=== PATIENT | male | born 1935 | race Caucasian/White ===

== ENCOUNTER 2016-06-21 15:31 | Emergency (ER) | payer OTHER, MEDICARE ==
[~2016-06-21] VITALS: Ht 182.9 cm; Wt 83.9 kg
[~2016-06-21 15:31] MED LIST: ASPIRIN CHILDRE81 MG PO; ATORVASTATIN CA10 M1 PO; BISACODYL10 MG PR; CEPHALEXIN250 M2 PO; CIPRO 250MG250 MG PO; CIPRO 500MG TA500 MG PO; CIPRO250 M1 PO; CIPROFLOXACIN250 M2 PO; COUMADIN 5 MG TA5 MG PO; ENDOCET 325 MG-1 TA1 PO; FINASTERIDE5 M1 PO; FINASTERIDE5 MG PO; FLEXERIL 5MG TAB5 MG PO; LORAZEPAM0.5 M1 PO; METOPROLOL SUCC25 M1 PO; METOPROLOL SUCC25 MG PO; PERCOCET 325 MG1 TA2 PO; RENVELA800 MG PO; SENOKOT NATURA8.6 MG PO; SENOKOT8.6 M1 PO; SODIUM BICARBO650 MG PO; TRAMADOL HCL50 M1 PO; VENTOLIN HFA18 GM INH
--- NOTE | 2016-06-21 15:48 | ED GI/GU/ABDOMINAL COMPLAINT ---
History of Present Illness General Chief Complaint: Male Genitourinary Problems Stated Complaint: BLEEDING FROM CATH Source: patient, family, old records Exam Limitations: no limitations Vital Signs & Intake/Output Vital Signs & Intake/Output Vital Signs Date Time Temp Pulse Resp B/P Pulse O2 O2 Flow FiO2 Ox Delivery Rate 06/21 1718 97.8 83 18 176/82 97 Room Air ED Intake and Output 06/22 0000 06/21 1200 Intake Total Output Total Balance Patient 185 lb Weight Allergies Coded Allergies: cephalexin (Severe, DIARRHEA 10/06/15) midazolam (From VERSED) (Mild, BECAME ANGRY AND UPSET 06/21/16) Anesthetics - Amide Type (DISORIENTED, REGRESSION IN TIME, LOSS OF MEMORY ) Anesthetics - Chyna Type- Parabens (DISORIENTED, REGRESSION OF TIME, LOSS OF MEMORY 06/21/16) Benzodiazepines (CONFUSION 05/10/15) adhesive tape (BLISTERS - PAPER TAPE ONLY 06/21/16) cortisone (PAIN FROM INJECTION FOR A LONG TIME 06/21/16) diazepam (From VALIUM) (BECAME ANGRY AND UPSET 06/21/16) sevelamer (From RENVELA) (URINARY RETENTION, CONSTIPATION, LEG SWELLING 01/29/16 ) Reconcile Medications Albuterol Sulfate (Ventolin Hfa) 18 GM HFA.AER.AD 2 PUF INH Q4-6 PRN PRN COPD (Reported) Amoxicillin 500 MG CAPSULE 1 CAP PO TID ANTIBIOTIC (Reported) Atorvastatin Calcium 10 MG TABLET 1 TAB PO EOD CHOLESTEROL (Reported) Finasteride 5 MG TABLET 1 TAB PO DAILY PROSTATE (Reported) Lorazepam 0.5 MG TABLET 1 TAB PO DAILY NEEDED PRN BLADDER SPASMS (Reported ) Metoprolol Succinate 25 MG TAB 0.5 TAB PO BID HEART (Reported) Tramadol HCl 50 MG TABLET 1 TAB PO Q6P PRN PAIN (Reported) Triage Note: PT STATES THAT HE HAS INDWELLING CATHETER AND THAT AROUND 1500 HE FELT THE BALLOON POP, PRADO IS STILL IN PLACE AND HE NOTED BLOOD IN BAG AFTER IT HAPPENED. PT STATES THAT HE HAD THE SAME THING HAPPEN IN JANUARY Triage Nurses Notes Reviewed? yes HPI: Patient is an 80-year-old male presents complaining of slashed Prado catheter. Patient reports that approximately 1-2 hours ago he felt a spasm in his bladder then started having hematuria. The Prado catheter then became dislodged. Patient reports this is happened to him previously where the balloon has "popped ". Mild suprapubic pain currently. Patient is currently on antibiotics ( amoxicillin) for urinary tract infection. Patient's urologist is Dr. Saldana. Patient has had an indwelling Prado catheter for approximately 2-3 years. Denies fevers, chills, vomiting (EMILIE BRITO) Past History Travel History Traveled to [place] past 21 day No Medical History Any Pertinent Medical History? see below for history Neurological: NONE EENT: NONE Cardiovascular: hypertension, hyperlipidemia, OPEN HEART SX Respiratory: NONE Gastrointestinal: NONE Hepatic: hepatitis B Renal: benign prost hyperplasia, CKD INDWELLING PRADO UTI Musculoskeletal: R ORIF Psychiatric: NONE Endocrine: BPH WITH TURP Blood Disorders: anemia, THALASEMIA Cancer(s): bladder cancer Other Medical Hx: BPH History of MRSA: No History of VRE: No History of CDIFF: No Surgical History Surgical History: appendectomy, cholecystectomy, OPEN HEART Psychosocial History Who do you live with Spouse Services at Home None What is your primary language Rwandan Tobacco Use: Never used ETOH Use: denies use Illicit Drug Use: denies illicit drug use Family History Family History, If Any: FATHER FH: stroke, Onset: Unknown. MOTHER FH: cancer Hx Contributory? No (EMILIE BIRTO) Review of Systems Review of Systems Constitutional: Denies: chills, fever. Respiratory: Denies: cough, short of breath. Cardiovascular: Denies: chest pain. GI: Denies: nausea, vomiting. Genitourinary: Reports: see HPI. Musculoskeletal: Denies: back pain. Neurological/Psychological: Reports: no symptoms. Hematologic/Endocrine: Reports: see HPI, bleeding (hematuria). Immunologic/Allergic: Reports: no symptoms. (EMILIE BRITO) Physical Exam Physical Exam General Appearance: well developed/nourished, alert, awake Head: atraumatic, normal appearance Eyes: Bilateral: normal appearance. Ears, Nose, Throat, Mouth: hearing grossly normal, moist mucous membrane Neck: normal inspection, supple, full range of motion Respiratory: no respiratory distress Cardiovascular: regular rate/rhythm Gastrointestinal: normal bowel sounds, soft, non-tender Back: normal inspection, normal range of motion Extremities: normal range of motion Neurologic/Psych: no motor/sensory deficits, awake, alert, oriented x 3, normal gait, normal mood/affect Skin: intact, normal color, warm/dry Core Measures ACS in differential dx? No Severe Sepsis Present: No Septic Shock Present: No (EMILIE BRITO) Progress Differential Diagnosis: ureterolithiasis, urinary retention, UTI/pyelo, prado catheter dysfunction Plan of Care: Microbiology 06/21 1716 URINE ROUT: Urine Culture - RES New Prado catheter placed by nursing staff. Patient appears stable for discharge and outpatient follow-up. Discussed with Dr. Shields. (EMILIE BRITO) Initial ED EKG: none (EMILIE BRITO) Departure Departure Disposition: HOME OR SELF CARE Condition: Stable Clinical Impression Primary Impression: Dislodged Prado catheter Qualifiers: Encounter type: initial encounter Qualified Code: T83.021A - Displacement of indwelling urethral catheter, initial encounter Secondary Impressions: Elevated blood pressure reading Referrals: DONNY CHOI,CLEM SANTOS MD,ELIZABETH (PCP/Family) Additional Instructions: Follow up with Dr. Saldana. Continue the antibiotics as previously directed. Return to the ER if catheter is not draining, fevers, increasing pain or worsening of symptoms. Departure Forms: Customer Survey General Discharge Information (EMILIE BRITO) PA/BROACHER Co-Sign Statement Statement: ED Attending supervision documentation- [X] I saw and evaluated the patient. I have also reviewed all the pertinent lab results and diagnostic results. I agree with the findings and the plan of care as documented in the PA's/BROACHER's documentation. [X] I have reviewed the ED Record and agree with the PA's/BROACHER's documentation. [] Additions or exceptions (if any) to the PAs/BROACHER's note and plan are summarized below: [] (RUFINO CHOI,CATIE)
[2016-06-21] MEDS ORDERED: AMOXICILLIN500 M2 PO (16:25)
[2016-06-21 17:18] VITALS: BP 176/82
== END 2016-06-21 17:19 ==
LOC: ERH 15:31
DX: T83.021A Displacement of indwelling urethral catheter, initial encounter (principal); T83.83XA Hemorrhage due to genitourinary prosthetic devices, implants and grafts, initial encounter
CPT/HCPCS: 87086

== ENCOUNTER 2016-08-02 02:19 | Emergency (ER) | payer OTHER, MEDICARE ==
[~2016-08-02] VITALS: Ht 182.9 cm; Wt 83.9 kg
[~2016-08-02 02:19] MED LIST changes: +AMOXICILLIN500 M2 PO
--- NOTE | 2016-08-02 02:30 | ED GI/GU/ABDOMINAL COMPLAINT ---
History of Present Illness General Chief Complaint: Male Genitourinary Problems Stated Complaint: "PER PT BLOOD IN URINE" Source: patient Exam Limitations: no limitations Vital Signs & Intake/Output Vital Signs & Intake/Output Vital Signs Date Time Temp Pulse Resp B/P B/P Pulse O2 O2 Flow FiO2 Mean Ox Delivery Rate 08/02 0246 100 Room Air 08/02 0237 96.3 92 18 162/79 100 Room Air Allergies Coded Allergies: cephalexin (Severe, DIARRHEA 10/06/15) midazolam (From VERSED) (Mild, BECAME ANGRY AND UPSET 06/21/16) Anesthetics - Amide Type (DISORIENTED, REGRESSION IN TIME, LOSS OF MEMORY ) Anesthetics - Chyna Type- Parabens (DISORIENTED, REGRESSION OF TIME, LOSS OF MEMORY 06/21/16) Benzodiazepines (CONFUSION 05/10/15) adhesive tape (BLISTERS - PAPER TAPE ONLY 06/21/16) cortisone (PAIN FROM INJECTION FOR A LONG TIME 06/21/16) diazepam (From VALIUM) (BECAME ANGRY AND UPSET 06/21/16) sevelamer (From RENVELA) (URINARY RETENTION, CONSTIPATION, LEG SWELLING 01/29/16 ) Reconcile Medications Albuterol Sulfate (Ventolin Hfa) 18 GM HFA.AER.AD 2 PUF INH Q4-6 PRN PRN COPD (Reported) Amoxicillin 500 MG CAPSULE 1 CAP PO TID ANTIBIOTIC (Reported) Atorvastatin Calcium 10 MG TABLET 1 TAB PO EOD CHOLESTEROL (Reported) Finasteride 5 MG TABLET 1 TAB PO DAILY PROSTATE (Reported) Lorazepam 0.5 MG TABLET 1 TAB PO DAILY NEEDED PRN BLADDER SPASMS (Reported ) Metoprolol Succinate 25 MG TAB 0.5 TAB PO BID HEART (Reported) Oxycodone HCl/Acetaminophen (Percocet 5-325 MG Tablet) 5 MG-325 MG TABLET 1 TAB PO 4XDP PRN PAIN TEN...[id number] Tramadol HCl 50 MG TABLET 1 TAB PO Q6P PRN PAIN (Reported) Triage Nurses Notes Reviewed? yes Onset: Abrupt Duration: hour(s): Timing: single episode today Quality/Severity: moderate Location: left flank Radiation: no radiation Activities at Onset: none Prior Abdominal Problems: similar symptoms Modifying Factors: Worsens With: urinating. Associated Symptoms: hematuria HPI: 80 yo gentleman h/o kidney stones 20 years ago, h/o indwelling prado catheter, presents with left flank pain which began several hours ago, similar to prior episode of kidney stones. He notes an episode of hematuria. He is otherwise well, without nausea, vomiting, diarrhea, chills, abdominal pain. Past History Travel History Traveled to [place] past 21 day No Medical History Any Pertinent Medical History? see below for history Neurological: NONE EENT: NONE Cardiovascular: hypertension, hyperlipidemia, OPEN HEART SX Respiratory: NONE Gastrointestinal: NONE Hepatic: hepatitis B Renal: benign prost hyperplasia, CKD INDWELLING PRADO UTI Musculoskeletal: R ORIF Psychiatric: NONE Endocrine: BPH WITH TURP Blood Disorders: anemia, THALASEMIA Cancer(s): bladder cancer Other Medical Hx: BPH History of MRSA: No History of VRE: No History of CDIFF: No Surgical History Surgical History: appendectomy, cholecystectomy, OPEN HEART Psychosocial History Who do you live with Spouse Services at Home None What is your primary language Liberian Tobacco Use: Refused to answer Family History Family History, If Any: FATHER FH: stroke, Onset: Unknown. MOTHER FH: cancer Hx Contributory? No Review of Systems Review of Systems Constitutional: Reports: no symptoms. EENTM: Reports: no symptoms. Respiratory: Reports: no symptoms. Cardiovascular: Reports: no symptoms. GI: Reports: no symptoms. Genitourinary: Reports: no symptoms. Musculoskeletal: Reports: no symptoms. Skin: Reports: no symptoms. Neurological/Psychological: Reports: no symptoms. Hematologic/Endocrine: Reports: no symptoms. Immunologic/Allergic: Reports: no symptoms. All Other Systems: Reviewed and Negative Physical Exam Physical Exam General Appearance: well developed/nourished, mild distress Head: atraumatic, normal appearance Eyes: Bilateral: normal appearance. Ears, Nose, Throat, Mouth: hearing grossly normal, moist mucous membrane Neck: normal inspection, supple, full range of motion Respiratory: normal breath sounds, chest non-tender, no respiratory distress Cardiovascular: regular rate/rhythm Gastrointestinal: normal bowel sounds, soft, non-tender Male Genitals: normal genitalia Back: normal inspection, left sided back paraspinal tenderness. Extremities: normal range of motion Neurologic/Psych: no motor/sensory deficits, awake, alert, oriented x 3 Skin: intact, normal color, warm/dry Core Measures ACS in differential dx? No Severe Sepsis Present: No Septic Shock Present: No Progress Differential Diagnosis: UTI/pyelo, kidney stone vs other. Plan of Care: Orders Procedure Date/time Status URINALYSIS 08/02 237 Complete LIPASE 08/02 237 Complete HEPATIC FUNCTION PANEL 08/02 237 Complete CBC WITHOUT DIFFERENTIAL 08/02 237 Complete BASIC METABOLIC PANEL 08/02 237 Complete AMYLASE 08/02 237 Complete Laboratory Tests 08/02/16 0355: Urinalysis LIGHT H, Urine Color BLDY H, Urine Clarity TURBD H, Urine pH 7.0, Ur Specific [place] 1.020, Urine Protein >=300 H, Urine Ketones NEG, Urine Nitrite NEG, Urine Bilirubin NEG, Urine Urobilinogen 0.2, Ur Leukocyte Esterase SMALL H, Ur Microscopic SEDIMENT EXAMINED, Urine RBC 50-75 H, Urine WBC 10-15 H, Urine Bacteria MOD H, Urine Hemoglobin LARGE H, Urine Glucose NEG 08/02/16 0243: Anion Gap 15, Estimated GFR 16 L, BUN/Creatinine Ratio 12.5, Glucose 94, Calcium 9.1, Total Bilirubin 0.5, Direct Bilirubin 0.3, AST 22, ALT 31, Alkaline Phosphatase 79, Total Protein 7.3, Albumin 4.3, Amylase 125 H, Lipase 437 H, CBC w Diff NO MAN DIFF REQ, RBC 5.40, MCV 63.7 L, MCH 19.6 L, RDW 16.1 H, MPV 9.0, Gran % 71.3, Lymphocytes % 17.0 L, Monocytes % 8.4, Eosinophils % 2.7, Basophils % 0.6, Absolute Granulocytes 8.1 H, Absolute Lymphocytes 1.9, Absolute Monocytes 1.0 H, Absolute Eosinophils 0.3, Absolute Basophils 0.1, PUBS MCHC 30.8 L Diagnostic Imaging: Viewed by Me: CT Scan. Discussed w/RAD: CT Scan. Radiology Impression: abd/pelvic ct... bilateral hydronephrosis... no visualized stones. Initial ED EKG: none Comments: PATIENT: KEI DUNBAR PRESENT AGE: 80 PATIENT ACCOUNT NO: [id number] : 35 LOCATION: [facility] ORDERING PHYSICIAN: BRAD SIMMS MD SERVICE DATE: 08/02/16 EXAM TYPE: CAT - CT ABD & PELVIS W/O IV CONTRAS EXAMINATION: CT ABDOMEN AND PELVIS WITHOUT CONTRAST CLINICAL INFORMATION: Left flank pain. Question kidney stone. COMPARISON: Ultrasound 03/12/2015. CT 02/17/2007 TECHNIQUE: Multidetector volumetric imaging was performed from the superior aspect of the liver through the pubic symphysis. Sagittal and coronal reformatted images were obtained on the technologist's workstation. DLP: 517 mGy-cm FINDINGS: LUNG BASES: The lung bases are clear. Calcifications are seen along the right aspect of the pericardium. LIVER, GALLBLADDER, AND BILIARY TREE: The liver is normal in size, shape, and attenuation. No focal hepatic lesion or biliary ductal dilatation is present. The gallbladder is not seen. PANCREAS: Unremarkable. SPLEEN: Unremarkable. ADRENAL GLANDS: Unremarkable. KIDNEYS AND URETERS: There is moderate left hydroureteronephrosis. There is no obstructing calculus present. The ureter is dilated along its entire course. There is mild right hydronephrosis with moderate dilatation of the right ureter along nearly its entire course. There is left greater than right prominent perinephric stranding. Bilateral cortical thinning, right greater than left. A majority of the right renal cortex is replaced by cysts. This is a significant change from the CT from 2006. Left renal cysts are also noted, with a dominant exophytic lower pole cyst which has significantly increased in size since 2006, measuring 9.7 cm. BLADDER: Decompressed with a Prado catheter in place. GASTROINTESTINAL TRACT: The stomach and small bowel are unremarkable. No dilated loops of bowel or evidence of obstruction. There is extensive diverticulosis of the sigmoid colon. No evidence of diverticulitis. No inflammatory changes. No free air or free fluid. ABDOMINAL WALL: No significant hernia is appreciated. LYMPH NODES: Normal. VASCULAR: Mild atherosclerotic calcifications. PELVIC VISCERA: Prominent enlargement of the prostate, measuring 6.2 cm transverse. OSSEOUS STRUCTURES: Cannulated screws in the right femoral neck. No acute fracture. Degenerative changes of the hips and spine. IMPRESSION: Moderate left hydroureteronephrosis with prominent perinephric stranding. Mild right hydronephrosis with moderate dilatation of the right ureter. There are no obstructing calculi. The prostate is enlarged. This could be associated with an outlet obstruction. Bilateral renal cortical thinning, right worse than left. Bilateral renal cysts are increased. Extensive sigmoid colon diverticulosis. DICTATED BY: JELLY CHOI,JANUARY DATE/TIME DICTATED:08/02/16 0327 [employer] INSURANCE SALES AGENT:JUDY DATE/TIME TRANSCRIBED:08/02/16326 CONFIDENTIAL, DO NOT COPY WITHOUT APPROPRIATE AUTHORIZATION. <Electronically signed in Other Vendor System> SIGNED BY: JELLY CHOI,JANUARY 08/02 Departure Departure Disposition: HOME OR SELF CARE Condition: Stable Clinical Impression Primary Impression: Flank pain Referrals: ELIZABETH SANTOS MD (PCP/Family) Departure Forms: Customer Survey General Discharge Information Prescriptions: Current Visit Scripts Oxycodone HCl/Acetaminophen (Percocet 5-325 MG Tablet) 1 TAB PO 4XDP PRN PAIN #10 TAB TEN...[id number] Comments 08/02/16, 4:47am... pt feeling better after toradol... doing well... ct scan negative for stones, but does show chronic changes... pt safe for discharge with close follow up advised. pt has follow up with urologist in 2 days.
[2016-08-02 02:50] LABS: ABSOLUTE BASOPHIL COUNT 0.1 /CUMM (0.0-0.2); ABSOLUTE EOSINOPHIL COUNT 0.3 /CUMM (0.0-0.7); ABSOLUTE GRANULOCYTE CT 8.1 /CUMM (1.4-6.5); ABSOLUTE LYMPH COUNT 1.9 /CUMM (1.2-3.4); BASOPHIL % 0.6 % (0.0-2.0); EOSINOPHIL % 2.7 % (0-5); GRANULOCYTE % 71.3 % (42.2-75.2); HEMATOCRIT 34.4 % (42-52); MEAN CORPUSCULAR HGB 19.6 PG (27.0-31.0); MEAN CORPUSCULAR HGB CONC 30.8 G/DL (33.0-37.0); MEAN CORPUSCULAR VOLUME 63.7 FL (80.0-94.0); PLATELET COUNT 210 /CUMM (130-400); RBC DISTRIBUTION WIDTH 16.1 % (11.5-14.5); WHITE BLOOD CELL COUNT 11.4 /CUMM (4.8-10.8)
--- NOTE | 2016-08-02 03:36 | CT SCAN REPORT ---
EXAMINATION: CT ABDOMEN AND PELVIS WITHOUT CONTRAST CLINICAL INFORMATION: Left flank pain. Question kidney stone. COMPARISON: Ultrasound 03/12/2015. CT 02/17/2007 TECHNIQUE: Multidetector volumetric imaging was performed from the superior aspect of the liver through the pubic symphysis. Sagittal and coronal reformatted images were obtained on the technologist's workstation. DLP: 517 mGy-cm FINDINGS: LUNG BASES: The lung bases are clear. Calcifications are seen along the right aspect of the pericardium. LIVER, GALLBLADDER, AND BILIARY TREE: The liver is normal in size, shape, and attenuation. No focal hepatic lesion or biliary ductal dilatation is present. The gallbladder is not seen. PANCREAS: Unremarkable. SPLEEN: Unremarkable. ADRENAL GLANDS: Unremarkable. KIDNEYS AND URETERS: There is moderate left hydroureteronephrosis. There is no obstructing calculus present. The ureter is dilated along its entire course. There is mild right hydronephrosis with moderate dilatation of the right ureter along nearly its entire course. There is left greater than right prominent perinephric stranding. Bilateral cortical thinning, right greater than left. A majority of the right renal cortex is replaced by cysts. This is a significant change from the CT from 2006. Left renal cysts are also noted, with a dominant exophytic lower pole cyst which has significantly increased in size since 2006, measuring 9.7 cm. BLADDER: Decompressed with a Castro catheter in place. GASTROINTESTINAL TRACT: The stomach and small bowel are unremarkable. No dilated loops of bowel or evidence of obstruction. There is extensive diverticulosis of the sigmoid colon. No evidence of diverticulitis. No inflammatory changes. No free air or free fluid. ABDOMINAL WALL: No significant hernia is appreciated. LYMPH NODES: Normal. VASCULAR: Mild atherosclerotic calcifications. PELVIC VISCERA: Prominent enlargement of the prostate, measuring 6.2 cm transverse. OSSEOUS STRUCTURES: Cannulated screws in the right femoral neck. No acute fracture. Degenerative changes of the hips and spine. IMPRESSION: Moderate left hydroureteronephrosis with prominent perinephric stranding. Mild right hydronephrosis with moderate dilatation of the right ureter. There are no obstructing calculi. The prostate is enlarged. This could be associated with an outlet obstruction. Bilateral renal cortical thinning, right worse than left. Bilateral renal cysts are increased. Extensive sigmoid colon diverticulosis.
[2016-08-02] MEDS ORDERED: PERCOCET 5-3251 EACH PO (04:39)
[2016-08-02 04:59] VITALS: BP 174/81
== END 2016-08-02 05:00 ==
LOC: ERH 02:19
PROVIDERS: Pediatrics
DX: R10.9 Unspecified abdominal pain (principal)
CPT/HCPCS: 74176; 81001; 96361; 96374; J1885

== ENCOUNTER 2017-11-14 07:42 | Inpatient (IN) | payer OTHER, MEDICARE ==
[~2017-11-14] VITALS: Ht 182 cm; Wt 79.6 kg
[~2017-11-14 07:42] MED LIST changes: +AMOXICILLIN500 M3 PO; +CIPRO500 M1 PO; +LOMOTIL 2.5-0.1 EACH PO; +PERCOCET 5-3251 EACH PO; +TYLENOL325 M1 PO
--- NOTE | 2017-11-14 07:46 | ED GENERAL ADULT ---
History of Present Illness General Chief Complaint: Syncope and Near-Syncope Stated Complaint: S/P RAPID RESPONSE, +SYNCOPE Source: patient, NURSING Exam Limitations: poor historian, physical impairment Vital Signs & Intake/Output Vital Signs & Intake/Output Vital Signs Date Time Temp Pulse Resp B/P B/P Pulse O2 O2 Flow FiO2 Mean Ox Delivery Rate 11/14 910 53 18 153/76 95 Nasal 2.0L Cannula 11/14 0842 53 18 167/76 98 Nasal 2.0L Cannula 11/14 0808 98.6 58 18 193/76 98 Nasal 2.0L Cannula 11/14 0757 98 Room Air Allergies Coded Allergies: cephalexin (Severe, DIARRHEA 02/05/17) midazolam (From VERSED) (Mild, BECAME ANGRY AND UPSET 02/05/17) Anesthetics - Amide Type (DISORIENTED, REGRESSION IN TIME, LOSS OF MEMORY ) Anesthetics - Chyna Type- Parabens (DISORIENTED, REGRESSION OF TIME, LOSS OF MEMORY 02/05/17) Benzodiazepines (CONFUSION 02/05/17) adhesive tape (BLISTERS - PAPER TAPE ONLY 02/05/17) cortisone (PAIN FROM INJECTION FOR A LONG TIME 02/05/17) diazepam (From VALIUM) (BECAME ANGRY AND UPSET 02/05/17) sevelamer (From RENVELA) (URINARY RETENTION, CONSTIPATION, LEG SWELLING 02/05/17 ) Reconcile Medications Atorvastatin Calcium 10 MG TABLET 1 TAB PO DAILY CHOLESTEROL (Reported) Finasteride 5 MG TABLET 1 TAB PO DAILY PROSTATE (Reported) Metoprolol Succinate 25 MG TAB 1 TAB PO QPM HEART/BP (Reported) Triage Nurses Notes Reviewed? yes Onset: Abrupt Duration: minute(s): Timing: recent history HPI: 11/14/17 8:33 AM 81-year-old male presents to the emergency department via rapid response for syncope. The patient was scheduled for a left nephrostomy tube change. He did eat some toast this morning. He does admit to difficulty breathing and occasional cough. No fever. He does admit to weakness. No chest pain currently but is had some chest tightness recently. He is DNR/DNI. Past History Travel History Traveled to [place] past 21 day No Medical History Any Pertinent Medical History? see below for history Neurological: PARTIAL RT HEARING LOSS EENT: NONE Cardiovascular: hypertension, hyperlipidemia, OPEN HEART SX Respiratory: NONE Gastrointestinal: NONE Hepatic: hepatitis B Renal: benign prost hyperplasia, CKD INDWELLING PRADO UTI NEPHROSTOMY TUBE Musculoskeletal: R ORIF Psychiatric: NONE Endocrine: BPH WITH TURP Blood Disorders: anemia, THALASEMIA Cancer(s): BLADDER CA (2009) Other Medical Hx: BPH History of MRSA: No History of VRE: No History of CDIFF: No Surgical History Surgical History: appendectomy, cholecystectomy, OPEN HEART BACK SURGERY Psychosocial History Who do you live with Spouse Services at Home None What is your primary language Armenian Family History Family History, If Any: FATHER FH: stroke, Onset: Unknown. MOTHER FH: cancer SISTER FH: cancer SISTER FH: cancer Hx Contributory? No Review of Systems Review of Systems Constitutional: Denies: fever. EENTM: Denies: visual changes. Respiratory: Reports: cough, short of breath. Cardiovascular: Reports: see HPI. GI: Denies: abdominal pain. Genitourinary: Reports: see HPI. Musculoskeletal: Reports: no symptoms. Skin: Reports: no symptoms. Neurological/Psychological: Denies: headache. Hematologic/Endocrine: Reports: no symptoms. Immunologic/Allergic: Reports: no symptoms. Physical Exam Physical Exam General Appearance: alert, awake, mild distress Head: atraumatic Eyes: Bilateral: normal appearance, PERRL, EOMI. Ears, Nose, Throat: normal pharynx, normal ENT inspection Neck: normal inspection, supple, full range of motion Respiratory: normal breath sounds, chest non-tender, no respiratory distress Cardiovascular: regular rate/rhythm Peripheral Pulses: 4+ radial (R), 4+ radial (L) Gastrointestinal: soft, non-tender (LEFT NEPHROSTOMY TUBE) Back: normal range of motion Extremities: pedal edema Neurologic/Psych: no motor/sensory deficits, awake, alert, oriented x 3 Skin: intact, normal color, warm/dry Core Measures ACS in differential dx? Yes CVA/TIA Diagnosis: No Sepsis Present: No Sepsis Focused Exam Completed? No Progress Differential Diagnoses I considered the following diagnoses in my evaluation of the patient: [Acute coronary syndrome, anemia, electrolyte derangement, CVA, hypoglycemia, dehydration] Plan of Care: Orders Procedure Date/time Status Heart Healthy Diet 11/14 L Active Patient Data 11/14 105 Active VITAL CAPACITY MONITORING 11/[address] in observation 11/14 1055 Active ED Holding Orders 11/14 1055 Active Code Status 11/14 1055 Active LUNG SCAN (V/Q) 11/14 1026 Active XRY-PORTABLE CHEST XRAY 11/14 1023 Active Add-on Test (ER Only) 11/14 1009 Active CULTURE,URINE 11/15 835 Active URINALYSIS 11/14 822 Complete TROPONIN LEVEL 11/14 822 Complete LACTIC ACID 11/14 822 Complete D-DIMER 11/14 822 Complete COMPREHENSIVE METABOLIC PANEL 11/14 822 Complete CBC WITHOUT DIFFERENTIAL 11/14 822 Complete EKG 11/14 0746 Active Laboratory Tests 11/14/17 0836: Anion Gap 5, Estimated GFR 22 L, BUN/Creatinine Ratio 11.8, Glucose 82, Lactic Acid 1.4, Calcium 8.7, Total Bilirubin 0.4, AST 21, ALT 25, Alkaline Phosphatase 61, Troponin I 0.01, Total Protein 6.1 L, Albumin 3.4 L, Globulin 2.7, Albumin /Globulin Ratio 1.3, D-Dimer High Sensitivty 423 H, CBC w Diff NO MAN DIFF REQ, RBC 5.05, MCV 63.8 L, MCH 20.3 L, MCHC 31.8 L, RDW 16.0 H, MPV 9.1, Gran % 70.6, Lymphocytes % 17.3 L, Monocytes % 9.8 H, Eosinophils % 2.2, Basophils % 0.1, Absolute Granulocytes 5.2, Absolute Lymphocytes 1.3, Absolute Monocytes 0.7 H, Absolute Eosinophils 0.2, Absolute Basophils 0, Urinalysis LIGHT H, Urine Color YEL, Urine Clarity HAZY H, Urine pH 6.0, Ur Specific [place] 1.025, Urine Protein 100 H, Urine Ketones NEG, Urine Nitrite POS H, Urine Bilirubin NEG, Urine Urobilinogen 0.2, Ur Leukocyte Esterase LARGE H, Ur Microscopic SEDIMENT EXAMINED, Urine RBC 15-25 H, Urine WBC PACKD H, Ur Epithelial Cells RARE, Urine Bacteria MANY H, Urine Hemoglobin MOD H, Urine Glucose NEG Microbiology 11/15 835 URINE ROUT: Urine Culture - RECD 11/14 822 URINE ROUT: Urine Culture - CAN Cancelled: Cancelled via OE: ADDED ON Initial ED EKG: NSR, RBBB Prior EKG: unchanged Departure Departure Disposition: STILL A PATIENT Condition: Stable Clinical Impression Primary Impression: Syncope Referrals: Robert Amaya MD (PCP/Family) Departure Forms: Customer Survey General Discharge Information Observation Note Spoke With: Robert Amaya MD Physician Advisor Notified: LEDY BENNETT DO Place Patient In: Non-ED OBS Care Area Rationale for Observation: My rational for observation is as follows [the patient needs to be placed in observation for serial troponins, repeat EKG, cardiology consultation, VQ scan, neuro evaluations every 6 hours]. Critical Care Note Critical Care Note Critical Care Time: 30-74 min
[2017-11-14 08:57] LABS: ABSOLUTE BASOPHIL COUNT 0 /CUMM (0.0-0.2); ABSOLUTE EOSINOPHIL COUNT 0.2 /CUMM (0.0-0.7); ABSOLUTE GRANULOCYTE CT 5.2 /CUMM (1.4-6.5); ABSOLUTE LYMPH COUNT 1.3 /CUMM (1.2-3.4); ABSOLUTE MONOCYTE COUNT 0.7 /CUMM (0.10-0.60); BASOPHIL % 0.1 % (0.0-2.0); EOSINOPHIL % 2.2 % (0-5); GRANULOCYTE % 70.6 % (42.2-75.2); HEMATOCRIT 32.2 % (42-52); MEAN CORPUSCULAR HGB 20.3 PG (27.0-31.0); MEAN CORPUSCULAR HGB CONC 31.8 G/DL (33.0-37.0); MEAN PLATELET VOLUME 9.1 FL (7.4-10.4); PLATELET COUNT 194 /CUMM (130-400); RED BLOOD CELL CT 5.05 /CUMM (4.70-6.10); WHITE BLOOD CELL COUNT 7.3 /CUMM (4.8-10.8)
[2017-11-14 09:13] LABS: MEAN CORPUSCULAR VOLUME 63.8 FL (80.0-94.0)
--- NOTE | 2017-11-14 09:42 | CT SCAN REPORT ---
EXAMINATION: CT HEAD WITHOUT CONTRAST CLINICAL INFORMATION: Syncope. Confusion. COMPARISON: 06/28/2015 TECHNIQUE: Contiguous axial imaging was performed from the skull base to vertex without intravenous administration of contrast. DLP: 630 mGy-cm FINDINGS: Brain parenchyma: No acute findings compared to 06/28/2015. Godwin-white matter differentiation is well preserved. No evidence of a dense cerebral artery sign, acute major vascular territory infarction, hemorrhage, mass or midline shift. [id number] atrophy of cerebral and cerebellar hemispheres. Cerebrospinal fluid spaces: No hydrocephalus or extra-axial fluid collections. Cerebellum and brainstem: No acute abnormality. The 4th ventricle is midline in position. The cerebellopontine angles are normal. Calvarium and temporomandibular joints: Calvarium is intact. Mastoid air cells and middle ear cavities are well aerated. The TMJs are normal. Paranasal sinuses and orbits: Mild mucosal thickening of ethmoid air cells. No air-fluid levels within the visualized nasal sinuses. Lenses have been extracted from each globe. Other: No acute findings in the visualized extracranial soft tissues. Chronic degeneration at the the partially visualized atlantodental articulation. IMPRESSION: No acute intracranial pathology compared to 06/28/2015.
--- NOTE | 2017-11-14 11:06 | RADIOLOGY REPORT ---
EXAMINATION: XR PORTABLE CHEST CLINICAL INFORMATION: Syncope COMPARISON: None TECHNIQUE: Portable frontal view of the chest was obtained. FINDINGS: Elevated right hemidiaphragm. Cardiomediastinal silhouette is within normal limits. Streaky subsegmental atelectasis noted in the bases. Suggestion of pleural thickening or trace right effusion. No gross consolidation. IMPRESSION: Stable elevation of the right hemidiaphragm. Streaky subsegmental atelectasis. Trace effusion or pleural thickening right base.
--- NOTE | 2017-11-14 11:16 | Cons- Cardiology ---
General Information and HPI Consulting Request Date of Consult: 11/14/17 Requested By: Dr. Amaya Reason for Consult: Syncope History of Present Illness: The patient is an 81-year-old male with history of hypertension, hyperlipidemia, atrial septal defect repair and bladder cancer who is admitted after a syncopal episode. The patient was in the same day surgical suite to have his nephrostomy to electively change. Before the procedure was initiated he became lightheaded and had a syncopal episode. Rapid response was called, the patient was brought to the emergency department. He notes intermittent episodes of lightheadedness and dizziness over the past week. He has been under stress secondary to the recent passing of his . No chest pain. No shortness of breath. No diaphoresis. No orthopnea. No nausea or vomiting. Allergies/Medications Allergies: Coded Allergies: cephalexin (Severe, DIARRHEA 02/05/17) midazolam (From VERSED) (Mild, BECAME ANGRY AND UPSET 02/05/17) Anesthetics - Amide Type (DISORIENTED, REGRESSION IN TIME, LOSS OF MEMORY ) Anesthetics - Chyna Type- Parabens (DISORIENTED, REGRESSION OF TIME, LOSS OF MEMORY 02/05/17) Benzodiazepines (CONFUSION 02/05/17) adhesive tape (BLISTERS - PAPER TAPE ONLY 02/05/17) cortisone (PAIN FROM INJECTION FOR A LONG TIME 02/05/17) diazepam (From VALIUM) (BECAME ANGRY AND UPSET 02/05/17) sevelamer (From RENVELA) (URINARY RETENTION, CONSTIPATION, LEG SWELLING 02/05/17 ) Home Med List: Atorvastatin Calcium 10 MG TABLET 1 TAB PO DAILY CHOLESTEROL (Reported) Finasteride 5 MG TABLET 1 TAB PO DAILY PROSTATE (Reported) Metoprolol Succinate 25 MG TAB 1 TAB PO QPM HEART/BP (Reported) Current Medications: Current Medications Sig/Brian Start time Last Medication Dose Route Stop Time Status Admin Acetaminophen 1,000 MG Q6P PRN 11/14 1200 AC IV Atorvastatin Calcium 10 MG 1700 11/15 1700 AC PO Atropine Sulfate 1 MG ONCE PRN 11/14 1345 AC IV Atropine Sulfate 0 .STK-MED ONE 11/14 1328 DC .ROUTE Ceftriaxone Sodium 1,000 MG DAILY 11/14 1201 AC 11/14 IV 1536 Dextrose/Sodium 1,000 ML .[id number] 11/14 1200 AC 11/14 Chloride IV 1342 Heparin Sodium 5,000 UNIT Q8 11/14 1400 AC (Porcine) SC Sodium Chloride 1,000 ML BOLUS ONE 11/14 0830 DC 11/14 IV 11/14 1029 0830 Review of Systems Review of Systems: No rash. No tremor. No melena. All other systems are reviewed and are noted to be negative. Past History Travel History Traveled to [place] past 21 day No Medical History Neurological: PARTIAL RT HEARING LOSS EENT: NONE Cardiovascular: hypertension, hyperlipidemia, OPEN HEART SX Respiratory: NONE Gastrointestinal: NONE Hepatic: hepatitis B Renal: benign prost hyperplasia, CKD INDWELLING PRADO UTI NEPHROSTOMY TUBE Musculoskeletal: R ORIF Psychiatric: NONE Endocrine: BPH WITH TURP Blood Disorders: anemia, THALASEMIA Cancer(s): BLADDER CA (2008) Other Medical Hx: BPH Surgical History Surgical History: appendectomy, cholecystectomy, OPEN HEART BACK SURGERY Family History Relations & Conditions If Any: FATHER FH: stroke, Onset: Unknown. MOTHER FH: cancer SISTER FH: cancer SISTER FH: cancer Psychosocial History Services at Home: None Primary Language: Turkish Functional Ability Ambulation: cane Exam & Diagnostic Data Vital Signs and I&O Vital Signs Date Time Temp Pulse Resp B/P B/P Pulse O2 O2 Flow FiO2 Mean Ox Delivery Rate 11/14 910 53 18 153/76 95 Nasal 2.0L Cannula 11/14 0842 53 18 167/76 98 Nasal 2.0L Cannula 11/14 0808 98.6 58 18 193/76 98 Nasal 2.0L Cannula 11/14 0757 98 Room Air Intake & Output 11/14 1600 11/14 0800 11/14 0000 11/13 1600 11/13 0000 Intake Total Output Total Balance Patient 180 lb Weight Weight Reported by Patient Measurement Method Labs/Chava Results: Laboratory Tests 11/14 11/14 11/14 1350 1123 0836 Chemistry Sodium (137 - 145 mmol/L) 142 Potassium (3.5 - 5.1 mmol/L) 4.4 Chloride (98 - 107 mmol/L) 111 H Carbon Dioxide (22 - 30 mmol/L) 26 Anion Gap (5 - 16) 5 BUN (9 - 20 mg/dL) 33 H Creatinine (0.7 - 1.2 mg/dL) 2.8 H Estimated GFR (>60 ml/min) 22 L BUN/Creatinine Ratio (7 - 25 %) 11.8 Glucose (65 - 99 mg/dL) 82 Lactic Acid (0.7 - 2.1 mmol/L) Cancelled 1.4 Calcium (8.4 - 10.2 mg/dL) 8.7 Total Bilirubin (0.2 - 1.3 mg/dL) 0.4 AST (17 - 59 U/L) 21 ALT (21 - 72 U/L) 25 Alkaline Phosphatase (< 127 U/L) 61 Troponin I (<0.11 ng/ml) 0.02 0.01 Total Protein (6.3 - 8.2 g/dL) 6.1 L Albumin (3.5 - 5.0 g/dL) 3.4 L Globulin (1.9 - 4.2 gm/dL) 2.7 Albumin/Globulin Ratio (1.1 - 2.2 %) 1.3 Coagulation D-Dimer High Sensitivty (0 - 243 ng/ml) 423 H Hematology CBC w Diff NO MAN DIFF REQ WBC (4.8 - 10.8 /CUMM) 7.3 RBC (4.70 - 6.10 /CUMM) 5.05 Hgb (14.0 - 18.0 G/DL) 10.3 L Hct (42 - 52 %) 32.2 L MCV (80.0 - 94.0 FL) 63.8 L MCH (27.0 - 31.0 PG) 20.3 L MCHC (33.0 - 37.0 G/DL) 31.8 L RDW (11.5 - 14.5 %) 16.0 H Plt Count (130 - 400 /CUMM) 194 MPV (7.4 - 10.4 FL) 9.1 Gran % (42.2 - 75.2 %) 70.6 Lymphocytes % (20.5 - 51.1 %) 17.3 L Monocytes % (1.7 - 9.3 %) 9.8 H Eosinophils % (0 - 5 %) 2.2 Basophils % (0.0 - 2.0 %) 0.1 Absolute Granulocytes (1.4 - 6.5 /CUMM) 5.2 Absolute Lymphocytes (1.2 - 3.4 /CUMM) 1.3 Absolute Monocytes (0.10 - 0.60 /CUMM) 0.7 H Absolute Eosinophils (0.0 - 0.7 /CUMM) 0.2 Absolute Basophils (0.0 - 0.2 /CUMM) 0 Urines Urinalysis LIGHT H Urine Color (YEL,AMB,STR) YEL Urine Clarity (CLEAR) HAZY H Urine pH (5.0 - 8.0) 6.0 Ur Specific [place] (1.001 - 1.035) 1.025 Urine Protein (NEG,<30 MG/DL) 100 H Urine Ketones (NEG) NEG Urine Nitrite (NEG) POS H Urine Bilirubin (NEG) NEG Urine Urobilinogen (0.1 - 1.0 EU/dl) 0.2 Ur Leukocyte Esterase (NEG) LARGE H Ur Microscopic SEDIMENT EXAMINED Urine RBC (0 - 5 /HPF) 15-25 H Urine WBC (0 - 2 /HPF) PACKD H Ur Epithelial Cells (NONE,FEW) RARE Urine Bacteria (NEG/NONE) MANY H Urine Hemoglobin (NEG) MOD H Urine Glucose (N MG/DL) NEG Diagnostic Data EKG Results EKG tracing is reviewed, and reveals NSRwith LAE and RBBB CXR Results Stable elevation of the right hemidiaphragm. Streaky subsegmental atelectasis. Trace effusion or pleural thickening right base. Other Results Head CT: No acute changes Assessment/Plan Assessment/Plan 81-year-old male with history of hypertension, hyperlipidemia, and ASD repair admitted after a syncopal episode which occurred during a nephrostomy tube change. He is noted to have evidence of urinary tract infection. Recommendations: * Monitor on telemetry * Echocardiogram * Check orthostatics * Antibiotic therapy for urinary tract infection as per the medical team Consult Acknowledgment - Thank you for your consult request.
--- NOTE | 2017-11-14 11:55 | History & Physical ---
See Addendum General Information and HPI History of Present Illness: 81-year-old man with past medical history of BPH status post TURP, CKD stage IIIB, indwelling left nephrostomy tube, hypertension, hyperlipidemia, bladder cancer status post treatment (2008), and "open heart surgery" seen for evaluation of a syncopal episode. Patient was in the same day surgical suite this morning where he was going to have his left indwelling nephrostomy tube changed electively. During the triage evaluation he became lightheaded and reportedly syncopized for which a rapid response was called. Patient was immediately taken over to the [place] ED for which she was evaluated and found to be cool/clammy/ diaphoretic. Vital signs demonstrated an elevated systolic blood pressure with a heart rate in the 50s. Presently patient states that over the past week he is felt ill with intermittent episodes of lightheadedness without any syncopal episodes. He admits to being incredibly frustrated and upset in life recently since the passing of his and does not want any aggressive measures. Presently he is complaining of lightheadedness and feels as if he is going to pass out. He admits to left-sided chest pain/pressure that is new since his arrival here today. During the interview patient was observed to have 3 independent syncopal episodes lasting approximately 10-30 second with patient appearing still and somewhat rigid without shaking with sinus bradycardia to the 50s on the monitor. Review of systems is somewhat otherwise limited. Objective Vital signs-temp 98.6, HR 53-58, RR 18, BP 153-193/76, SPO2 95-98% on 2.0 L Physical exam -General: Thin, chronically ill-appearing elderly man in no acute distress -HEENT: NCAT, Karel, EOMI, anicteric sclera, moist mucous membranes -Neck: Supple, no JVD, trachea midline, no accessory respiratory muscle use -Cardio: Normal S1/S2 without murmurs/gallops/rubs; bradycardic -Pulmonary: Clear to auscultation bilaterally -Abdomen: Soft, nontender, nondistended, bowel sounds intact -Neuro: Periods of lucidity where patient is awake and alert and oriented to person, place, and time and able to follow commands with clear fluent speech and spontaneous movement of all 4 extremities without any obvious neurologic deficits with periods of acute onset loss of consciousness lasting 10-30 seconds without any witnessed shaking/posturing or bowel/bladder incontinence -Extremities: Normal pulses, no edema Diagnostics -CBC: WBC 7.3, hemoglobin 10.3, hematocrit 32.2, platelet 194, MCV 63 -BMP: Sodium 142, potassium 4.4, chloride 111, CO2 26, BUN 33, creatinine 2.8, anion gap 5, glucose 82 -LFT: Within normal limits -Miscellaneous: D-dimer 423, troponin I <0.01, lactic acid 1.4 -Urinalysis: Positive nitrates with large leukocyte esterase and packed WBCs with moderate hemoglobin -EKG: Normal sinus rhythm with right bundle branch block -Echocardiogram 06/30/15: LVEF 50-60% without any regional wall motion abnormalities -CT head without IV contrast: No acute intracranial pathology compared to 2015. Assessment 81-year-old man with multiple medical problems seen for evaluation after a rapid response was called when patient syncopized in the same day surgical suite awaiting exchange of his left indwelling nephrostomy tube. Vital signs are significant for elevated systolic blood pressure with a bradycardic heart rate to the 50s during the interview. Physical examination is described as above. Labs are significant for a urinalysis demonstrating an acute urinary tract infection. CT head is unremarkable. EKG demonstrates a normal sinus rhythm with a right bundle branch block. Clinically patient appears to have had a syncopal episode with preceding symptoms of lightheadedness over the past week likely multifactorial in etiology given his urinary tract infection and probable symptomatic bradycardia. Patient is being admitted to the telemetry floor for telemetry monitoring, serial EKG/ troponin, echocardiogram, EEG, cardiology consultation, neurology consultation. Problem list -Syncope, likely multifactorial from UTI and probable bradycardic rhythm -Sinus bradycardia, etiology unclear -CKD, stage III -History of BPH status post TURP -Indwelling left nephrostomy -Hypertension -Hyperlipidemia -History of bladder cancer (2008) Plan -Admit to telemetry floor -Telemetry monitoring -Neuro checks -Seizure/fall precautions -D5 half-normal saline at 75 mL per hour while nothing by mouth -Ceftriaxone 1 g IV daily -Continue home meds: Atorvastatin -Hold metoprolol for bradycardia -Hold finasteride for now -Cardiology consult for chest pressure and syncope -Neurology consult for recurrent syncope -Follow-up urine culture -Obtain blood cultures 2 -Check second lactic acid -Check orthostatic blood pressures 1 appropriate -Obtain transthoracic echocardiogram -Obtain EEG -Trend troponin/EKG until peak or 3 negative sets -exchange of left nephrostomy inpatient when appropriate -Pain control with acetaminophen -NPO while altered -DVT prophylaxis with subcutaneous heparin -DNR/DNI Allergies/Medications Allergies: Coded Allergies: cephalexin (Severe, DIARRHEA 02/05/17) midazolam (From VERSED) (Mild, BECAME ANGRY AND UPSET 02/05/17) Anesthetics - Amide Type (DISORIENTED, REGRESSION IN TIME, LOSS OF MEMORY ) Anesthetics - Chyna Type- Parabens (DISORIENTED, REGRESSION OF TIME, LOSS OF MEMORY 02/05/17) Benzodiazepines (CONFUSION 02/05/17) adhesive tape (BLISTERS - PAPER TAPE ONLY 02/05/17) cortisone (PAIN FROM INJECTION FOR A LONG TIME 02/05/17) diazepam (From VALIUM) (BECAME ANGRY AND UPSET 02/05/17) sevelamer (From RENVELA) (URINARY RETENTION, CONSTIPATION, LEG SWELLING 02/05/17 ) Home Med list Atorvastatin Calcium 10 MG TABLET 1 TAB PO DAILY CHOLESTEROL (Reported) Finasteride 5 MG TABLET 1 TAB PO DAILY PROSTATE (Reported) Metoprolol Succinate 25 MG TAB 1 TAB PO QPM HEART/BP (Reported) Past History Travel History Traveled to [place] past 21 day No Medical History Neurological: PARTIAL RT HEARING LOSS EENT: NONE Cardiovascular: hypertension, hyperlipidemia, OPEN HEART SX Respiratory: NONE Gastrointestinal: NONE Hepatic: hepatitis B Renal: benign prost hyperplasia, CKD INDWELLING PRADO UTI NEPHROSTOMY TUBE Musculoskeletal: R ORIF Psychiatric: NONE Endocrine: BPH WITH TURP Blood Disorders: anemia, THALASEMIA Cancer(s): BLADDER CA (2008) Other Medical Hx: BPH History of MRSA: No History of VRE: No History of CDIFF: No Surgical History Surgical History: appendectomy, cholecystectomy, OPEN HEART BACK SURGERY Past Family/Social History Family History Relations & Conditions if any FATHER FH: stroke, Onset: Unknown. MOTHER FH: cancer SISTER FH: cancer SISTER FH: cancer Psychosocial History Services at Home: None Primary Language: Kyrgyz Functional Ability Ambulation: cane Review of Systems Review of Systems Constitutional: Reports: see HPI. Exam & Diagnostic Data Last 24 Hrs of Vital Signs/I&O Vital Signs Date Time Temp Pulse Resp B/P B/P Pulse O2 O2 Flow FiO2 Mean Ox Delivery Rate 11/14 1222 Nasal 2.0L Cannula 11/14 1200 98.1 46 22 168/78 100 Nasal 2.0L Cannula 11/14 0911 53 18 153/76 95 Nasal 2.0L Cannula 11/14 0842 53 18 167/76 98 Nasal 2.0L Cannula 11/14 0808 98.6 58 18 193/76 98 Nasal 2.0L Cannula 11/14 0757 98 Room Air Intake & Output 11/14 1600 11/14 0800 11/14 0000 Intake Total Output Total 400 Balance -400 Output, Urine 400 Patient 81.647 kg Weight Weight Reported by Patient Measurement Method Diagnostic Data EKG Results EKG tracing is reviewed, and reveals NSRwith LAE and RBBB Assessment/Plan As Ranked By This Provider Problem List: 1. Syncope Core Measures/Misc (11/21) Acute Coronary Syndrome ACS Diagnosis: No Congestive Heart Failure Congestive Heart Failure Diagnosis No Cerebrovascular Accident CVA/TIA Diagnosis: No VTE (View Protocol) VTE Risk Factors Age>40 No Mechanical VTE Prophylaxis d/t N/A MechProphylax Ordered No VTE Pharm Prophylaxis d/t NA PharmProphylax ordered Sepsis (View protocol) Sepsis Present: No If YES complete Sepsis Event Note If YES complete Sepsis Event Note
--- NOTE | 2017-11-14 13:25 | Admission Certification ---
Admission Certification Certification Statement - As attending physician, I certify that at the time of - admission, based on clinical presentation, severity of - symptoms, need for further diagnostic testing and - therapeutic interventions, and risk of adverse outcomes - without in-hospital treatment, in my clinical assessment, - this patient requires an acute hospital stay for a minimum - of two nights or longer. I have also considered psychsocial - factors such as support system, advanced age, financial - issues, cognitive issues, and failed out-patient treatments, - past re-admission history, safety of patient, and lack of - compliance as applicable. Specific rationale supporting this admission is: Syncopal episodes, weakness, bradycardia
--- NOTE | 2017-11-14 13:29 | PN- Att Addend ---
Attending Addendum Attending Brief Note 81-year-old white male with ongoing urological problems, was scheduled this morning to have a nephrostomy tube replaced. Before the procedure there was a rapid response with a syncopal episode, patient was sent to the ER for evaluation. When I saw the patient he stated that he has been having these episodes for at least a week or so for a few minute duration at home. Patient lost his recently. A cardiology consultation was requested. Patient also had a CAT scan of the head which showed no acute abnormalities. When the resident was seen the patient he had a couple of those episodes. Right now the patient is alert he feels cold very weak and neurology consultation also was requested and will get an EEG. His UA is abnormal, will get a urine culture, his white count is normal. His kidney function is chronically abnormal and is chronically anemic. Patient wished to be a DNR DNI. Current Medications Sig/Brian Start time Last Medication Dose Route Stop Time Status Admin Acetaminophen 1,000 MG Q6P PRN 11/14 1200 AC IV Atorvastatin Calcium 10 MG 1700 11/15 1700 AC PO Atropine Sulfate 0 .STK-MED ONE 11/14 1328 DC .ROUTE Ceftriaxone Sodium 1,000 MG DAILY 11/14 1201 AC IV Dextrose/Sodium 1,000 ML .[id number] 11/14 1200 AC Chloride IV Heparin Sodium 5,000 UNIT Q8 11/14 1400 AC (Porcine) SC Sodium Chloride 1,000 ML BOLUS ONE 11/14 0830 DC 11/14 IV 11/14 1029 0830 Laboratory Tests 11/14/17 1123: Lactic Acid Cancelled 11/14/17 0836: Anion Gap 5, Estimated GFR 22 L, BUN/Creatinine Ratio 11.8, Glucose 82, Lactic Acid 1.4, Calcium 8.7, Total Bilirubin 0.4, AST 21, ALT 25, Alkaline Phosphatase 61, Troponin I 0.01, Total Protein 6.1 L, Albumin 3.4 L, Globulin 2.7, Albumin /Globulin Ratio 1.3, D-Dimer High Sensitivty 423 H, CBC w Diff NO MAN DIFF REQ, RBC 5.05, MCV 63.8 L, MCH 20.3 L, MCHC 31.8 L, RDW 16.0 H, MPV 9.1, Gran % 70.6, Lymphocytes % 17.3 L, Monocytes % 9.8 H, Eosinophils % 2.2, Basophils % 0.1, Absolute Granulocytes 5.2, Absolute Lymphocytes 1.3, Absolute Monocytes 0.7 H, Absolute Eosinophils 0.2, Absolute Basophils 0, Urinalysis LIGHT H, Urine Color YEL, Urine Clarity HAZY H, Urine pH 6.0, Ur Specific [place] 1.025, Urine Protein 100 H, Urine Ketones NEG, Urine Nitrite POS H, Urine Bilirubin NEG, Urine Urobilinogen 0.2, Ur Leukocyte Esterase LARGE H, Ur Microscopic SEDIMENT EXAMINED, Urine RBC 15-25 H, Urine WBC PACKD H, Ur Epithelial Cells RARE, Urine Bacteria MANY H, Urine Hemoglobin MOD H, Urine Glucose NEG Vital Signs Date Time Temp Pulse Resp B/P B/P Pulse O2 O2 Flow FiO2 Mean Ox Delivery Rate 11/14 1222 Nasal 2.0L Cannula 11/14 1200 98.1 46 22 168/78 100 Nasal 2.0L Cannula 11/14 0911 53 18 153/76 95 Nasal 2.0L Cannula 11/14 0842 53 18 167/76 98 Nasal 2.0L Cannula 11/14 0808 98.6 58 18 193/76 98 Nasal 2.0L Cannula 11/14 0757 98 Room Air
[2017-11-14 15:32] VITALS: BP 144/70
--- NOTE | 2017-11-14 18:20 | Cons- Neurology ---
General Information and HPI Consulting Request Date of Consult: 11/14/17 Requested By: Robert Amaya MD Reason for Consult: Syncope Source of Information: patient, old records Exam Limitations: no limitations History of Present Illness: 81-year-old man was waiting for a nephrostomy tube change and recalls feeling weak then lightheaded with spots in the vision, he then apparently passed out. His next recall was several people around him. There was no witnessed seizure activity. He was described as cool and clammy. The initial BP after he the event was elevated but heart rate remained low in the 50s He reports other episodes of lightheaded dizziness over the past 10 days but had not passed out For a longer period of time, perhaps 2 months he has been increasingly weak particularly with any effort or exertion. He reports trouble climbing stairs and carrying objects. He has developed jerking movements of the arms which tend to "give out" On the admission evaluation the UA was markedly positive for leukocyte esterase, nitrites, WBCs and bacteria and ceftriaxone has been started empirically Allergies/Medications Allergies: Coded Allergies: cephalexin (Severe, DIARRHEA 02/05/17) midazolam (From VERSED) (Mild, BECAME ANGRY AND UPSET 02/05/17) Anesthetics - Amide Type (DISORIENTED, REGRESSION IN TIME, LOSS OF MEMORY ) Anesthetics - Chyna Type- Parabens (DISORIENTED, REGRESSION OF TIME, LOSS OF MEMORY 02/05/17) Benzodiazepines (CONFUSION 02/05/17) adhesive tape (BLISTERS - PAPER TAPE ONLY 02/05/17) cortisone (PAIN FROM INJECTION FOR A LONG TIME 02/05/17) diazepam (From VALIUM) (BECAME ANGRY AND UPSET 02/05/17) sevelamer (From RENVELA) (URINARY RETENTION, CONSTIPATION, LEG SWELLING 02/05/17 ) Home Med List: Atorvastatin Calcium 10 MG TABLET 1 TAB PO DAILY CHOLESTEROL (Reported) Finasteride 5 MG TABLET 1 TAB PO DAILY PROSTATE (Reported) Metoprolol Succinate 25 MG TAB 1 TAB PO QPM HEART/BP (Reported) Current Medications: Current Medications Sig/Brian Start time Last Medication Dose Route Stop Time Status Admin Acetaminophen 1,000 MG Q6P PRN 11/14 1200 AC IV Atorvastatin Calcium 10 MG 1700 11/15 1700 AC PO Atropine Sulfate 1 MG ONCE PRN 11/14 1345 AC IV Atropine Sulfate 0 .STK-MED ONE 11/14 1328 DC .ROUTE Ceftriaxone Sodium 1,000 MG DAILY 11/14 1201 AC 11/14 IV 1536 Dextrose/Sodium 1,000 ML .[id number] 11/14 1200 AC 11/14 Chloride IV 1342 Heparin Sodium 5,000 UNIT Q8 11/14 1400 AC (Porcine) SC Sodium Chloride 1,000 ML BOLUS ONE 11/14 0830 DC 11/14 IV 11/14 1029 0830 Review of Systems Review of Systems: ROS: A complete medical systems review was obtained. He denied headache, vision loss or diplopia, difficulty speaking, lateralized weakness or numbness. He does feel somewhat out of breath and has intermittent epigastric to lower chest pain. Fevers and chills denied. All other systems negative or noncontributory Past History Travel History Traveled to [place] past 21 day No Medical History Blood Transfusion Hx: No Neurological: PARTIAL RT HEARING LOSS EENT: NONE Cardiovascular: hypertension, hyperlipidemia, OPEN HEART SX Respiratory: NONE Gastrointestinal: NONE Hepatic: hepatitis B Renal: benign prost hyperplasia, CKD INDWELLING PRADO UTI NEPHROSTOMY TUBE Musculoskeletal: R ORIF Psychiatric: NONE Endocrine: BPH WITH TURP Blood Disorders: anemia, THALASEMIA Cancer(s): BLADDER CA (2008) Other Medical Hx: BPH Surgical History Surgical History: appendectomy, cholecystectomy, OPEN HEART BACK SURGERY Family History Relations & Conditions If Any: FATHER FH: stroke, Onset: Unknown. MOTHER FH: cancer SISTER FH: cancer SISTER FH: cancer Psychosocial History Services at Home: None Primary Language: American Smoking Status: Unknown If Ever Smoked Functional Ability Ambulation: cane Exam & Diagnostic Data Vital Signs and I&O Vital Signs Date Time Temp Pulse Resp B/P B/P Pulse O2 O2 Flow FiO2 Mean Ox Delivery Rate 11/14 1600 99 Nasal 2.0L Cannula 11/14 1532 97.2 40 20 144/70 92 Nasal Cannula 11/14 1400 99 Nasal 2.0L Cannula 11/14 1222 Nasal 2.0L Cannula 11/14 1200 98.1 46 22 168/78 100 Nasal 2.0L Cannula 11/14 0911 53 18 153/76 95 Nasal 2.0L Cannula 11/14 0842 53 18 167/76 98 Nasal 2.0L Cannula 11/14 0808 98.6 58 18 193/76 98 Nasal 2.0L Cannula 11/14 0757 98 Room Air Intake & Output 11/14 1600 11/14 0800 11/14 0000 Intake Total Output Total 400 Balance -400 Output, Urine 400 Patient 180 lb Weight Weight Reported by Patient Measurement Method Physical Exam: On exam the patient appeared generally well and in no distress. No carotid bruits and no cardiac murmur. No peripheral edema Mental status: Alert, attentive, fully oriented, no language errors, recall and general fund of knowledge seem intact Visual smith full , Eye movements full without nystagmus, pupils midsize equal round and reactive to light. Facial movement normal bilaterally Facial sensation normal bilaterally Hearing reduced bilaterally Uvula elevates midline Tongue protrusion is midline Shoulder shrug symmetric Motor power general 4+/5 weakness with asterixis, tone normal Sensation intact to primary modes Tendon reflexes normal and symmetric without pathologic signs Coordination no ataxia Gait [testing deferred] Last 48 Hours of Lab Results: Laboratory Tests 11/14 11/14 11/14 1350 1123 0836 Chemistry Sodium (137 - 145 mmol/L) 142 Potassium (3.5 - 5.1 mmol/L) 4.4 Chloride (98 - 107 mmol/L) 111 H Carbon Dioxide (22 - 30 mmol/L) 26 Anion Gap (5 - 16) 5 BUN (9 - 20 mg/dL) 33 H Creatinine (0.7 - 1.2 mg/dL) 2.8 H Estimated GFR (>60 ml/min) 22 L BUN/Creatinine Ratio (7 - 25 %) 11.8 Glucose (65 - 99 mg/dL) 82 Lactic Acid (0.7 - 2.1 mmol/L) Cancelled 1.4 Calcium (8.4 - 10.2 mg/dL) 8.7 Total Bilirubin (0.2 - 1.3 mg/dL) 0.4 AST (17 - 59 U/L) 21 ALT (21 - 72 U/L) 25 Alkaline Phosphatase (< 127 U/L) 61 Troponin I (<0.11 ng/ml) 0.02 0.01 Total Protein (6.3 - 8.2 g/dL) 6.1 L Albumin (3.5 - 5.0 g/dL) 3.4 L Globulin (1.9 - 4.2 gm/dL) 2.7 Albumin/Globulin Ratio (1.1 - 2.2 %) 1.3 Coagulation D-Dimer High Sensitivty (0 - 243 ng/ml) 423 H Hematology CBC w Diff NO MAN DIFF REQ WBC (4.8 - 10.8 /CUMM) 7.3 RBC (4.70 - 6.10 /CUMM) 5.05 Hgb (14.0 - 18.0 G/DL) 10.3 L Hct (42 - 52 %) 32.2 L MCV (80.0 - 94.0 FL) 63.8 L MCH (27.0 - 31.0 PG) 20.3 L MCHC (33.0 - 37.0 G/DL) 31.8 L RDW (11.5 - 14.5 %) 16.0 H Plt Count (130 - 400 /CUMM) 194 MPV (7.4 - 10.4 FL) 9.1 Gran % (42.2 - 75.2 %) 70.6 Lymphocytes % (20.5 - 51.1 %) 17.3 L Monocytes % (1.7 - 9.3 %) 9.8 H Eosinophils % (0 - 5 %) 2.2 Basophils % (0.0 - 2.0 %) 0.1 Absolute Granulocytes (1.4 - 6.5 /CUMM) 5.2 Absolute Lymphocytes (1.2 - 3.4 /CUMM) 1.3 Absolute Monocytes (0.10 - 0.60 /CUMM) 0.7 H Absolute Eosinophils (0.0 - 0.7 /CUMM) 0.2 Absolute Basophils (0.0 - 0.2 /CUMM) 0 Urines Urinalysis LIGHT H Urine Color (YEL,AMB,STR) YEL Urine Clarity (CLEAR) HAZY H Urine pH (5.0 - 8.0) 6.0 Ur Specific [place] (1.001 - 1.035) 1.025 Urine Protein (NEG,<30 MG/DL) 100 H Urine Ketones (NEG) NEG Urine Nitrite (NEG) POS H Urine Bilirubin (NEG) NEG Urine Urobilinogen (0.1 - 1.0 EU/dl) 0.2 Ur Leukocyte Esterase (NEG) LARGE H Ur Microscopic SEDIMENT EXAMINED Urine RBC (0 - 5 /HPF) 15-25 H Urine WBC (0 - 2 /HPF) PACKD H Ur Epithelial Cells (NONE,FEW) RARE Urine Bacteria (NEG/NONE) MANY H Urine Hemoglobin (NEG) MOD H Urine Glucose (N MG/DL) NEG Imaging/Other Studies: CT brain parenchyma: No acute findings compared to 06/28/2015. Godwin-white matter differentiation is well preserved. No evidence of a dense cerebral artery sign, acute major vascular territory infarction, hemorrhage, mass or midline shift. [id number] atrophy of cerebral and cerebellar hemispheres. Cerebrospinal fluid spaces: No hydrocephalus or extra-axial fluid collections. Cerebellum and brainstem: No acute abnormality. The 4th ventricle is midline in position. The cerebellopontine angles are normal. IMPRESSION: No acute intracranial pathology compared to 06/28/2015 CXR: IMPRESSION: Stable elevation of the right hemidiaphragm. Streaky subsegmental atelectasis. Trace effusion or pleural thickening right base. Assessment/Plan Assessment: Syncope, preceding pre-syncopal events superimposed on recently developed and progressing generalized weakness. Normal bedside neurologic exam except for asterixis which may be related to his chronic renal insufficiency, exacerbated by UTI Doubt seizure but EEG has been ordered. Recommendations: Would hold off on any empiric antiseizure medication Please check orthostatic blood pressures and complete the cardiac evaluation Consult Acknowledgment - Thank you for your consult request.
[2017-11-14 20:46] VITALS: BP 102/60
--- NOTE | 2017-11-15 07:28 | PN- Housestaff ---
Subjective Follow-up For: Syncope Sinus bradycardia Tele-Events Since Last Visit: Patient remained in sinus rhythm with heart rate between 4351 with PVCs and PACs Subjective: Patient remained afebrile. Seen and examined this morning. Patient denied chest pain, palpitation, nausea, vomiting, chill, fever, dizziness, abdominal dysuria. Patient is feeling much improved compared to yesterday. He has nephrostomy tube on the left side is draining his urine. Review of Systems Constitutional: Denies: chills, fever. EENTM: Denies: blurred vision, double vision. Cardiovascular: Denies: chest pain, palpitations. Respiratory: Denies: cough, short of breath, sputum production. Gastrointestinal: Denies: abdominal pain, constipation, diarrhea, nausea, vomiting. Genitourinary: Reports: see HPI. Neurological/Psychological: Reports: see HPI. Objective Last 24 Hrs of Vital Signs/I&O Vital Signs Date Time Temp Pulse Resp B/P B/P Pulse O2 O2 Flow FiO2 Mean Ox Delivery Rate 11/15 0729 97.5 58 18 112/70 98 Room Air 11/14 2106 Nasal 2.0L Cannula 11/14 2046 98.0 37 20 102/60 99 Nasal 2.0L Cannula 11/14 1600 99 Nasal 2.0L Cannula 11/14 1532 97.2 40 20 144/70 92 Nasal Cannula 11/14 1400 99 Nasal 2.0L Cannula 11/14 1222 Nasal 2.0L Cannula 11/14 1200 98.1 46 22 168/78 100 Nasal 2.0L Cannula 11/14 0911 53 18 153/76 95 Nasal 2.0L Cannula Intake & Output 11/15 1600 11/15 0800 11/15 0000 Intake Total Output Total 500 550 Balance -500 -550 Output, Urine 500 550 Patient 180 lb Weight Physical Exam General Appearance: Alert, Oriented X3, Cooperative Skin: No Rashes Skin Temp/Moisture Exam: Warm/Dry Sepsis Skin Exam (color): Normal for Ethnicity HEENT: Atraumatic, PERRLA, EOMI Neck: Supple Cardiovascular: Normal S1, Normal S2 Lungs: Clear to Auscultation Abdomen: Soft, No Tenderness Neurological: Normal Speech, Strength at 5/5 X4 Ext, Normal Tone Extremities: No Edema Assessment/Plan Assessment: 81 YO M with PMH of BPH status post TURP, CKD stage IIIB, indwelling left nephrostomy tube, hypertension, hyperlipidemia, bladder cancer status post treatment (2008), and "open heart surgery" seen for evaluation of a syncopal episode. Seeing the patient on telemetry floor for following problems. Under observation. Syncopal episode: -Patient had syncopal episode yesterday when he was in IR suite for nephrostomy tube change. Patient denied any nausea or vomiting before syncopal episode. -Neurology evaluated the patient for any seizure activity and recommended EEG. -His EEG is normal -Follow-up cardiology recommendations -Follow-up echocardiogram results. -We will check his orthostatic vitals. His IV fluid has been discontinued as he is eating drinking orally. -His CT scan had remained negative for any intracranial pathology. Chronic colonization of urine: -Patient has positive UA but his urine culture is negative. -On ceftriaxone day 2. Ceftriaxone has been discontinued as his urine culture remained negative, showed possible chronic colonization. Sinus bradycardia: -Patient remained asymptomatic -Pacer pads and atropine on bedside -We will follow cardiology recommendations. History of chronic kidney disease: -Patient has CKD stage III -On baseline BUN and creatinine. History of hypertension and hyperlipidemia: -Holding his metoprolol due to bradycardia and syncopal episode. -Continue Lipitor History of bladder cancer status post treatment and left nephrostomy tube placement: -Nephrostomy tube will be changed by IR before he goes home. -Patient will follow with his urologist after discharge. DVT prophylaxis: Mechanical and subcutaneous heparin CODE STATUS: DNR/intu Problem List: 1. Bradycardia 2. Syncope Pain Ratin Pain Location: none Pain Goal: Remain pain free Pain Plan: pain pathway Tomorrow's Labs & Rationales: bep/mag
[2017-11-15 07:29] VITALS: BP 112/70
[2017-11-15 07:49] LABS: ABSOLUTE BASOPHIL COUNT 0 /CUMM (0.0-0.2); ABSOLUTE EOSINOPHIL COUNT 0.2 /CUMM (0.0-0.7); ABSOLUTE GRANULOCYTE CT 4.1 /CUMM (1.4-6.5); ABSOLUTE LYMPH COUNT 1.5 /CUMM (1.2-3.4); ABSOLUTE MONOCYTE COUNT 0.4 /CUMM (0.10-0.60); BASOPHIL % 0.2 % (0.0-2.0); EOSINOPHIL % 3.4 % (0-5); GRANULOCYTE % 66.3 % (42.2-75.2); HEMATOCRIT 32.3 % (42-52); MEAN CORPUSCULAR HGB 20.2 PG (27.0-31.0); MEAN CORPUSCULAR HGB CONC 31.4 G/DL (33.0-37.0); MEAN CORPUSCULAR VOLUME 64.4 FL (80.0-94.0); MEAN PLATELET VOLUME 9.7 FL (7.4-10.4); PLATELET COUNT 188 /CUMM (130-400); RBC DISTRIBUTION WIDTH 15.9 % (11.5-14.5); RED BLOOD CELL CT 5.01 /CUMM (4.70-6.10); WHITE BLOOD CELL COUNT 6.2 /CUMM (4.8-10.8)
--- NOTE | 2017-11-15 09:54 | PN- Att Addend ---
Attending Addendum Attending Brief Note Patient looking and feeling much better today. Apparently has not had anymore of those symptoms. Yesterday had refused medications and tests but today he is agreeable to do anything we need Still a little bradycardic otherwise his vital signs are stable. No new changes in physical. He had his echocardiogram cardiology will read it and then reassess the patient if stable then start disposition plans. Patient also awaiting to have an electroencephalogram. Also check with IR see if they want to do the procedure before he leaves the hospital. 24 TOTALS 11/15 0000 11/14 0000 Intake Total Output Total 950 Balance -950 Output, Urine 950 Patient 180 lb Weight Weight Reported by Patient Measurement Method Current Medications Sig/Brian Start time Last Medication Dose Route Stop Time Status Admin Acetaminophen 1,000 MG Q6P PRN 11/14 1200 AC 11/14 IV 2027 Atorvastatin Calcium 10 MG 1700 11/15 1700 AC PO Atropine Sulfate 1 MG ONCE PRN 11/14 1345 AC IV Atropine Sulfate 0 .STK-MED ONE 11/14 1328 DC .ROUTE Ceftriaxone Sodium 1,000 MG DAILY 11/14 1201 DC 11/15 IV 0854 Dextrose/Sodium 1,000 ML .[id number] 11/14 1200 DC 11/14 Chloride IV 2250 Heparin Sodium 5,000 UNIT Q8 11/14 1400 AC 11/15 (Porcine) SC 0528 Influenza Virus 0.5 ML ONCE ONE 11/15 0545 DC 11/15 Vaccine IM 11/15 0546 0611 Magnesium Oxide 400 MG ONE ONE 11/15 0830 DC PO 11/15 0831 Sodium Chloride 1,000 ML BOLUS ONE 11/14 0830 DC 11/14 IV 11/14 1029 0830 Laboratory Tests 11/1520 2004 1350 Chemistry Sodium (137 - 145 mmol/L) 139 Potassium (3.5 - 5.1 mmol/L) 4.4 Chloride (98 - 107 mmol/L) 112 H Carbon Dioxide (22 - 30 mmol/L) 22 Anion Gap (5 - 16) 5 BUN (9 - 20 mg/dL) 28 H Creatinine (0.7 - 1.2 mg/dL) 2.5 H Estimated GFR (>60 ml/min) 25 L BUN/Creatinine Ratio (7 - 25 %) 11.2 Magnesium (1.6 - 2.3 mg/dL) 1.9 Troponin I (<0.11 ng/ml) 0.02 0.02 Hematology CBC w Diff MAN DIFF ORDERED WBC (4.8 - 10.8 /CUMM) 6.2 RBC (4.70 - 6.10 /CUMM) 5.01 Hgb (14.0 - 18.0 G/DL) 10.1 L Hct (42 - 52 %) 32.3 L MCV (80.0 - 94.0 FL) 64.4 L MCH (27.0 - 31.0 PG) 20.2 L MCHC (33.0 - 37.0 G/DL) 31.4 L RDW (11.5 - 14.5 %) 15.9 H Plt Count (130 - 400 /CUMM) 188 MPV (7.4 - 10.4 FL) 9.7 Gran % (42.2 - 75.2 %) 66.3 Lymphocytes % (20.5 - 51.1 %) 24.0 Monocytes % (1.7 - 9.3 %) 6.1 Eosinophils % (0 - 5 %) 3.4 Basophils % (0.0 - 2.0 %) 0.2 Absolute Granulocytes (1.4 - 6.5 /CUMM) 4.1 Segmented Neutrophils (42.2 - 75.2 %) 60 Absolute Lymphocytes (1.2 - 3.4 /CUMM) 1.5 Lymphocytes (20.5 - 51.1 %) 25 Monocytes (1.7 - 9.3 %) 8 Absolute Monocytes (0.10 - 0.60 /CUMM) 0.4 Eosinophils (0 - 5.0 %) 5 Absolute Eosinophils (0.0 - 0.7 /CUMM) 0.2 Basophils (0.0 - 2.0 %) 2 Absolute Basophils (0.0 - 0.2 /CUMM) 0 Platelet Estimate (ADEQUATE) VERIFIED BY SMEAR Polychromasia 1+ Hypochromic-Microcytic 1+ Poikilocytosis 1+ Basophilic Stippling 1+ Anisocytosis 1+ Microcytic Cells 1+ Ovalocytes 1+ 11/14 11/14 1123 0836 Chemistry Sodium (137 - 145 mmol/L) 142 Potassium (3.5 - 5.1 mmol/L) 4.4 Chloride (98 - 107 mmol/L) 111 H Carbon Dioxide (22 - 30 mmol/L) 26 Anion Gap (5 - 16) 5 BUN (9 - 20 mg/dL) 33 H Creatinine (0.7 - 1.2 mg/dL) 2.8 H Estimated GFR (>60 ml/min) 22 L BUN/Creatinine Ratio (7 - 25 %) 11.8 Glucose (65 - 99 mg/dL) 82 Lactic Acid (0.7 - 2.1 mmol/L) Cancelled 1.4 Calcium (8.4 - 10.2 mg/dL) 8.7 Total Bilirubin (0.2 - 1.3 mg/dL) 0.4 AST (17 - 59 U/L) 21 ALT (21 - 72 U/L) 25 Alkaline Phosphatase (< 127 U/L) 61 Troponin I (<0.11 ng/ml) 0.01 Total Protein (6.3 - 8.2 g/dL) 6.1 L Albumin (3.5 - 5.0 g/dL) 3.4 L Globulin (1.9 - 4.2 gm/dL) 2.7 Albumin/Globulin Ratio (1.1 - 2.2 %) 1.3 Coagulation D-Dimer High Sensitivty (0 - 243 ng/ml) 423 H Hematology CBC w Diff NO MAN DIFF REQ WBC (4.8 - 10.8 /CUMM) 7.3 RBC (4.70 - 6.10 /CUMM) 5.05 Hgb (14.0 - 18.0 G/DL) 10.3 L Hct (42 - 52 %) 32.2 L MCV (80.0 - 94.0 FL) 63.8 L MCH (27.0 - 31.0 PG) 20.3 L MCHC (33.0 - 37.0 G/DL) 31.8 L RDW (11.5 - 14.5 %) 16.0 H Plt Count (130 - 400 /CUMM) 194 MPV (7.4 - 10.4 FL) 9.1 Gran % (42.2 - 75.2 %) 70.6 Lymphocytes % (20.5 - 51.1 %) 17.3 L Monocytes % (1.7 - 9.3 %) 9.8 H Eosinophils % (0 - 5 %) 2.2 Basophils % (0.0 - 2.0 %) 0.1 Absolute Granulocytes (1.4 - 6.5 /CUMM) 5.2 Absolute Lymphocytes (1.2 - 3.4 /CUMM) 1.3 Absolute Monocytes (0.10 - 0.60 /CUMM) 0.7 H Absolute Eosinophils (0.0 - 0.7 /CUMM) 0.2 Absolute Basophils (0.0 - 0.2 /CUMM) 0 Urines Urinalysis LIGHT H Urine Color (YEL,AMB,STR) YEL Urine Clarity (CLEAR) HAZY H Urine pH (5.0 - 8.0) 6.0 Ur Specific [place] (1.001 - 1.035) 1.025 Urine Protein (NEG,<30 MG/DL) 100 H Urine Ketones (NEG) NEG Urine Nitrite (NEG) POS H Urine Bilirubin (NEG) NEG Urine Urobilinogen (0.1 - 1.0 EU/dl) 0.2 Ur Leukocyte Esterase (NEG) LARGE H Ur Microscopic SEDIMENT EXAMINED Urine RBC (0 - 5 /HPF) 15-25 H Urine WBC (0 - 2 /HPF) PACKD H Ur Epithelial Cells (NONE,FEW) RARE Urine Bacteria (NEG/NONE) MANY H Urine Hemoglobin (NEG) MOD H Urine Glucose (N MG/DL) NEG Vital Signs Date Time Temp Pulse Resp B/P B/P Pulse O2 O2 Flow FiO2 Mean Ox Delivery Rate 11/15 0729 97.5 58 18 112/70 98 Room Air 11/14 2106 Nasal 2.0L Cannula 11/14 2046 98.0 37 20 102/60 99 Nasal 2.0L Cannula 11/14 1600 99 Nasal 2.0L Cannula 11/14 1532 97.2 40 20 144/70 92 Nasal Cannula 11/14 1400 99 Nasal 2.0L Cannula 11/14 1222 Nasal 2.0L Cannula 11/14 1200 98.1 46 22 168/78 100 Nasal 2.0L Cannula The urine culture is negative, will stop antibiotic.
--- NOTE | 2017-11-15 10:15 | Patient Discharge Instructions ---
Discharge Instructions General Discharge Information You were seen/treated for: Syncopal episode Sinus bradycardia Depression and anxiety Watch for these problems: Chest pain, palpitation, loss of consciousness, nausea, vomiting, abdominal pain , dysuria. If you experience any of the symptoms please come to ED or call to your primary care physician. Special Instructions: Follow-up with your primary care physician in 1 week Follow-up with your fish bait picker in 1 week and talk about resuming metoprolol that was held due to sinus bradycardia. Follow-up with your urologist in 1 week. Follow-up with psychiatry in 1 week. Patient's appointment was scheduled on 01 December at 1:00 for outpatient psychiatry follow-up. Diet Recommended Diet: Heart Healthy Activity Activity Self Limited: Yes Acute Coronary Syndrome Inclusion Criteria At DC or during hospital stay patient has or had the following: ACS DIAGNOSIS No Discharge Core Measures Meds if any: Prescribed or Continued at Discharge Meds if any: NOT Prescribed or Continued at Discharge Congestive Heart Failure Inclusion Criteria At DC or during hospital stay patient has or had the following: CHF DIAGNOSIS No Discharge Core Measures Meds if any: Prescribed or Continued at Discharge Meds if any: NOT Prescribed or Continued at Discharge Cerebrovascular accident Inclusion Criteria At DC or during hospital stay patient has or had the following: CVA/TIA Diagnosis No Discharge Core Measures Meds if any: Prescribed or Continued at Discharge Meds if any: NOT Prescribed or Continued at Discharge Venous thromboembolism Inclusion Criteria VTE Diagnosis No VTE Type NONE VTE Confirmed by (Test) NONE Discharge Core Measures - Per Current guidelines, there needs to be overlap - treatment for the first 5 days of Warfarin therapy. - If discharged on Warfarin prior to 5 days of - overlap therapy, the patient will need to be - assessed for post discharge needs including - *Post discharge parental anticoagulation - *Warfarin and/or parental anticoagulation education - *Follow up date to check INR post discharge At least 5 days overlap therapy as Inpatient No Meds if any: Prescribed or Continued at Discharge Note: Overlap Therapy is Warfarin and Anticoagulant Meds if any: NOT Prescribed or Continued at Discharge
--- NOTE | 2017-11-15 11:57 | ECHOCARDIOGRAM REPORT ---
KEI DUNBAR Age: 81 : 1935 Gender: M Exam Date: 11/14/2017 15:58 Exam Location: [address] Ht (in): 72 Wt (lb): 180 BSA: 2.04 BP: 153 / 76 Ordering Physician: Jax Kingsley MD Referring Physician: Camron Johnson MD Technologist: Madina Roach [facility] Room Number: 180-01 Indications: Presyncope/syncope Rhythm: Sinus Technical Quality: Good FINDINGS Left Ventricle Normal size left ventricle. Mild concentric left ventricular hypertrophy. Normal left ventricular wall motion. Normal left ventricular ejection fraction visually estimated at >55 %. Right Ventricle Normal right ventricular size and function. Right Atrium Mild right atrial dilatation. Left Atrium Normal left atrial size. Mitral Valve Mitral valve thickened. Mild mitral regurgitation. Aortic Valve Diffuse thickening (sclerosis) of the aortic valve cusps without reduced excursion. Mild aortic regurgitation. Tricuspid Valve Tricuspid valve not well visualized, grossly normal. Mild tricuspid regurgitation. No evidence of pulmonary hypertension. Pulmonic Valve Pulmonic valve not well visualized, grossly normal. Trace pulmonic regurgitation. Pericardium No pericardial effusion. Great Vessels Normal size aortic root. CONCLUSIONS Mild concentric left ventricular hypertrophy. Normal left ventricular ejection fraction visually estimated at >55 %. Mild right atrial dilatation. Mild mitral regurgitation. Mild aortic regurgitation. Mild tricuspid regurgitation. Trace pulmonic regurgitation. Camron Johnson M.D. (Electronically Signed) Final Date: 15 November 2017 11:56 MEASUREMENTS (Male / Female) Normal Values 2D ECHO LV Diastolic Diameter PLAX 4.1 cm 4.2 - 5.9 / 3.9 - 5.3 cm LV Systolic Diameter PLAX 2.8 cm 2.1 - 4.0 cm LV Fractional Shortening PLAX 31.7 % 25 - 46 % LV Ejection Fraction 2D Teich 60.2 % IVS Diastolic Thickness 1.3 cm LVPW Diastolic Thickness 1.3 cm LV Relative Wall Thickness 0.6 RV Internal Dim ED PLAX 3.0 cm 1.9 - 3.8 cm LVOT Diameter 2.1 cm Aortic Root Diameter 3.1 cm LA Systolic Diameter LX 3.4 cm 3.0 - 4.0 / 2.7 - 3.8 cm LA Volume 41.0 cm 18 - 58 / 22 - 52 cm Ascending Aorta Diameter 3.4 cm DOPPLER AV Peak Velocity 129.0 cm/s AV Peak Gradient 6.7 mmHg AV Mean Velocity 77.4 cm/s AV Mean Gradient 3.0 mmHg AV Velocity Time Integral 28.6 cm LVOT Peak Velocity 63.2 cm/s LVOT Peak Gradient 1.6 mmHg LVOT Mean Velocity 46.1 cm/s LVOT Mean Gradient 1.0 mmHg LVOT Velocity Time Integral 17.7 cm LVOT Stroke Volume 61.3 cm AV Area Cont Eq vti 2.1 cm AV Area Cont Eq pk 1.7 cm MV Peak Velocity 91.7 cm/s MV Peak Gradient 3.4 mmHg MV Mean Velocity 55.2 cm/s MV Mean Gradient 1.0 mmHg Mitral E Point Velocity 83.9 cm/s Mitral A Point Velocity 69.1 cm/s Mitral E to A Ratio 1.2 MV PHT Velocity 94.7 cm/s MV Deceleration [place] 310.0 cm/s MV Pressure Half Time 91.6 ms MV Area PHT 2.4 cm MV Deceleration Time 208.0 ms TR Peak Velocity 262.0 cm/s TR Peak Gradient 27.5 mmHg Right Atrial Pressure 5.0 mmHg Pulmonary Artery Systolic Pressure 32.5 mmHg Right Ventricular Systolic Pressure 32.5 mmHg PV Peak Velocity 119.0 cm/s PV Peak Gradient 5.7 mmHg PV Mean Velocity 80.5 cm/s PV Mean Gradient 3.0 mmHg PV Velocity Time Integral 30.6 cm LV E' Lateral Velocity 6.8 cm/s Mitral E to LV E' Lateral Ratio 12.3 LV E' Septal Velocity 8.1 cm/s Mitral E to LV E' Septal Ratio 10.4
--- NOTE | 2017-11-15 12:12 | PN- Cardiology ---
Subjective Subjective: Feeling well. No chest pain. No shortness of breath. No diaphoresis. No palpitations. Sinus rhythm on telemetry with episodes of sinus bradycardia Objective Vital Signs and I&Os Vital Signs Date Time Temp Pulse Resp B/P B/P Pulse O2 O2 Flow FiO2 Mean Ox Delivery Rate 11/15 0729 97.5 58 18 112/70 98 Room Air 11/14 2106 Nasal 2.0L Cannula 11/14 2046 98.0 37 20 102/60 99 Nasal 2.0L Cannula 11/14 1600 99 Nasal 2.0L Cannula 11/14 1532 97.2 40 20 144/70 92 Nasal Cannula 11/14 1400 99 Nasal 2.0L Cannula 11/14 1222 Nasal 2.0L Cannula Intake & Output 11/15 1600 11/15 0800 11/15 0000 11/14 1600 11/14 0800 11/14 0000 Intake Total Output Total 500 550 400 Balance -500 -550 -400 Output, Urine 500 550 400 Patient 180 lb 180 lb Weight Weight Reported by Patient Measurement Method Physical Exam: Gen: NAD HEENT: normal Lungs: clear to auscultation, normal resp. effort Heart: RRR, S1, S2, no murmurs Abdomen: Soft, nontender, no masses Extremities: No clubbing, cyanosis, or edema. Neuro: Alert and oriented x 3, cranial nerves intact Current Medications: Current Medications Sig/Brian Start time Last Medication Dose Route Stop Time Status Admin Acetaminophen 1,000 MG Q6P PRN 11/14 1200 AC 11/14 IV 2027 Atorvastatin Calcium 10 MG 1700 11/15 1700 AC PO Atropine Sulfate 1 MG ONCE PRN 11/14 1345 AC IV Atropine Sulfate 0 .STK-MED ONE 11/14 1328 DC .ROUTE Ceftriaxone Sodium 1,000 MG DAILY 11/14 1201 DC 11/15 IV 0854 Dextrose/Sodium 1,000 ML .[id number] 11/14 1200 DC 11/14 Chloride IV 2250 Heparin Sodium 5,000 UNIT Q8 11/14 1400 AC 11/15 (Porcine) SC 0528 Influenza Virus 0.5 ML ONCE ONE 11/15 0545 DC 11/15 Vaccine IM 11/15 0546 0611 Magnesium Oxide 400 MG ONE ONE 11/15 0830 DC 11/15 PO 11/15 0831 1007 Results Last 48 Hrs of Labs/Mics: Laboratory Tests 11/15/17 0620: Anion Gap 5, Estimated GFR 25 L, BUN/Creatinine Ratio 11.2, Magnesium 1.9, CBC w Diff MAN DIFF ORDERED, RBC 5.01, MCV 64.4 L, MCH 20.2 L, MCHC 31.4 L, RDW 15.9 H, MPV 9.7, Gran % 66.3, Lymphocytes % 24.0, Monocytes % 6.1, Eosinophils % 3.4, Basophils % 0.2, Absolute Granulocytes 4.1, Segmented Neutrophils 60, Absolute Lymphocytes 1.5, Lymphocytes 25, Monocytes 8, Absolute Monocytes 0.4, Eosinophils 5, Absolute Eosinophils 0.2, Basophils 2, Absolute Basophils 0, Platelet Estimate VERIFIED BY SMEAR, Polychromasia 1+, Hypochromic-Microcytic 1+ , Poikilocytosis 1+, Basophilic Stippling 1+, Anisocytosis 1+, Microcytic Cells 1+, Ovalocytes 1+ 11/14/17 2005: Troponin I 0.02 11/14/17 1350: Troponin I 0.02 11/14/17 1123: Lactic Acid Cancelled 11/14/17 0836: Anion Gap 5, Estimated GFR 22 L, BUN/Creatinine Ratio 11.8, Glucose 82, Lactic Acid 1.4, Calcium 8.7, Total Bilirubin 0.4, AST 21, ALT 25, Alkaline Phosphatase 61, Troponin I 0.01, Total Protein 6.1 L, Albumin 3.4 L, Globulin 2.7, Albumin /Globulin Ratio 1.3, D-Dimer High Sensitivty 423 H, CBC w Diff NO MAN DIFF REQ, RBC 5.05, MCV 63.8 L, MCH 20.3 L, MCHC 31.8 L, RDW 16.0 H, MPV 9.1, Gran % 70.6, Lymphocytes % 17.3 L, Monocytes % 9.8 H, Eosinophils % 2.2, Basophils % 0.1, Absolute Granulocytes 5.2, Absolute Lymphocytes 1.3, Absolute Monocytes 0.7 H, Absolute Eosinophils 0.2, Absolute Basophils 0, Urinalysis LIGHT H, Urine Color YEL, Urine Clarity HAZY H, Urine pH 6.0, Ur Specific [place] 1.025, Urine Protein 100 H, Urine Ketones NEG, Urine Nitrite POS H, Urine Bilirubin NEG, Urine Urobilinogen 0.2, Ur Leukocyte Esterase LARGE H, Ur Microscopic SEDIMENT EXAMINED, Urine RBC 15-25 H, Urine WBC PACKD H, Ur Epithelial Cells RARE, Urine Bacteria MANY H, Urine Hemoglobin MOD H, Urine Glucose NEG Microbiology 11/14 0836 URINE ROUT: Urine Culture - COMP Recent Imaging Studies: Chest x-ray: Stable elevation of the right hemidiaphragm. Streaky subsegmental atelectasis. Trace effusion or pleural thickening right base. Echocardiogram 11/14/17: Mild concentric left ventricular hypertrophy. Normal left ventricular ejection fraction visually estimated at >55 %. Mild right atrial dilatation. Mild mitral regurgitation. Mild aortic regurgitation. Mild tricuspid regurgitation. Trace pulmonic regurgitation. Assessment/Plan Assessment/Plan Assessment: * Hypertension * Hyperlipidemia * Remote history of ASD repair * Syncope, uncertain etiology * Sinus bradycardia, heart rate dropping to 30's Plan: * Check orthostatics * Continue to monitor on telemetry, and ambulate patient * No clear evidence that syncope was secondary to bradycardia. Of note, the patient had presyncopal symptoms in the emergency department during which his heart rate was greater than 50 on telemetry. If evidence of symptomatic bradycardia is seen, then permanent pacemaker placement would be indicated. Continue telemetry? Yes
--- NOTE | 2017-11-15 13:51 | PN- Student ---
Subjective Subjective: Overnight, he maintained SB 43-51 with PACs. This morning the patient was pleasant and sitting in bed comfortably. He described feeling much better than he did yesterday. He reported improved strength and denied any pain or discomfort. He was feeling more open-minded to further diagnostic testing, however was still adament in voicing the need to be DNR/DNI. ROS: General: denied fatigue, weakness, or fevers HEENT: denied any changes in vision or diplopia Cardio: denied chest pain or palpitations Pulmonary: denied any dyspnea, SOB, or productive cough Gastrointestinal: denied abdominal pain or discomfort Genitourinary: denied pain with urination Objective Objective: Physical Exam: General: Patient was awake, alert, and in no apparent distress Skin: no lesions, rashes, or erythema HEENT: JOYCE, EOMI Neck: trachea was midline, neck was supple, and no JVD Cardiovascular: regular rate and rhythm Pulmonary: audible breath sounds, no wheezing, rhonchi, or rales Neuro: Patient displayed fluid speech and symmetric facial expressions. Strength was 5/5 bilaterally in upper extremities Exremities: normal capillary refill, no edema Vital Signs Date Time Temp Pulse Resp B/P B/P Pulse O2 O2 Flow FiO2 Mean Ox Delivery Rate 11/15 0729 97.5 58 18 112/70 98 Room Air 11/14 2106 Nasal 2.0L Cannula 11/14 2046 98.0 37 20 102/60 99 Nasal 2.0L Cannula 11/14 1600 99 Nasal 2.0L Cannula 11/14 1532 97.2 40 20 144/70 92 Nasal Cannula 11/14 1400 99 Nasal 2.0L Cannula 11/14 1222 Nasal 2.0L Cannula 11/14 1200 98.1 46 22 168/78 100 Nasal 2.0L Cannula 11/14 0911 53 18 153/76 95 Nasal 2.0L Cannula 11/14 0842 53 18 167/76 98 Nasal 2.0L Cannula 11/14 0808 98.6 58 18 193/76 98 Nasal 2.0L Cannula 11/14 0757 98 Room Air Laboratory Tests 11/15/17 0620: Anion Gap 5, Estimated GFR 25 L, BUN/Creatinine Ratio 11.2, Magnesium 1.9, CBC w Diff MAN DIFF ORDERED, RBC 5.01, MCV 64.4 L, MCH 20.2 L, MCHC 31.4 L, RDW 15.9 H, MPV 9.7, Gran % 66.3, Lymphocytes % 24.0, Monocytes % 6.1, Eosinophils % 3.4, Basophils % 0.2, Absolute Granulocytes 4.1, Segmented Neutrophils 60, Absolute Lymphocytes 1.5, Lymphocytes 25, Monocytes 8, Absolute Monocytes 0.4, Eosinophils 5, Absolute Eosinophils 0.2, Basophils 2, Absolute Basophils 0, Platelet Estimate VERIFIED BY SMEAR, Polychromasia 1+, Hypochromic-Microcytic 1+ , Poikilocytosis 1+, Basophilic Stippling 1+, Anisocytosis 1+, Microcytic Cells 1+, Ovalocytes 1+ 11/14/17 2005: Troponin I 0.02 11/14/17 1350: Troponin I 0.02 Microbiology Date/Time Procedure - Status Source Growth 11/14 2129 Blood Culture - RES BLOOD 11/14 0836 Urine Culture - COMP URINE ROUT Orders Procedure Date/time Status MAGNESIUM 11/16 0600 Active BASIC ELECTROLYTES PLUS BUN&CR 11/16 0600 Active Heart Healthy Diet 11/15 B Active DRAINAGE CATHETER CHANGE 11/15 1300 Active MAGNESIUM 11/15 0600 Complete CBC WITHOUT DIFFERENTIAL 11/15 06 Complete BASIC ELECTROLYTES PLUS BUN&CR 11/15 0600 Complete XRY-FLUOROSCOPY,INDEPEND PROC 11/15 UNK Active PT Evaluate & Treat 11/15 UNK Active MISTAKE 11/15 UNK Active ELECTROENCEPHALOGRAM 11/15 UNK Active Heart Healthy Diet 11/14 L Complete Nothing by Mouth 11/14 D Complete OXYGEN SETUP (GEN) 11/15 1999 Complete TROPONIN LEVEL 11/15 1999 Complete EKG 11/14 2000 Active Vital Signs 11/14 1608 Active Teach/Educate 11/14 160 Active Pain Treatment and Response 11/14 1608 Active Nutritional Intake, Monitor 11/14 160 Active Isolation 11/14 1608 Active Intake & Output 11/14 160 Active Patient Care Conference 11/14 1608 Active Activity/Ambulation 11/14 1608 Active TROPONIN LEVEL 11/14 1400 Complete EKG 11/14 1400 Active Pathway - chart 11/14 1204 Active House Staff 11/14 1204 Active BLOOD CULTURE 11/14 1204 Active Code Status 11/14 1204 Active Patient Data 11/[address] in observation 11/14 1055 Active ED Holding Orders 11/14 1055 Active Code Status 11/14 1055 Complete Add-on Test (ER Only) 11/14 1009 Active CULTURE,URINE 11/14 0836 Complete URINALYSIS 11/14 0823 Complete TROPONIN LEVEL 11/14 0823 Complete LACTIC ACID 11/14 0823 Complete D-DIMER 11/14 0823 Complete COMPREHENSIVE METABOLIC PANEL 11/14 0823 Complete CBC WITHOUT DIFFERENTIAL 11/14 0823 Complete Intake & Output 11/14 0753 Active EKG 11/14 0746 Active OXYGEN SETUP CHG 11/14 UNK Complete OXYGEN 11/14 UNK Complete OXYGEN TRANSPORT 11/14 UNK Complete VTE Mechanical Prophylaxis 11/14 UNK Active Vital Signs 11/14 UNK Active MISTAKE 11/14 UNK Active Seizure Precautions 11/14 UNK Active Precautions 11/14 UNK Active NIH Stroke Scale 11/14 UNK Active Activity/Ambulation 11/14 UNK Active Assessment/Plan Assessment: Mr. Rico is an 81 yo male with a history of CKDIIIb, hypertension, hyperlipidemia, and bladder cancer presented to the ED with an episode of syncope. He was at [facility] yesterday for a nephrostomy tube change when he described spots in his eyes before he passed out. His syncope episode was associated with a recorded bradycardia in the 50s. He describes not feeling well the week prior with feelings or dizziness and light headedness. He reports an increase in stress with the recent passing of his on October 06, 2018. Urinalysis at admission was positive for nitrates and leukocyte esterase, he was started on ceftriaxone. Problem List: #Syncope: Patient history is consistant with syncope of unknown origin associated with bradycardia. He received a neuro and cardiac consult. Cardio requested an echo which displayed an ejection fraction >55%. The patients neuro exam found the patient to have 4/5 weakness and asterixis which can be explained by his chronic renal insufficiency. Troponin levels were unremarkable. Orthostatics were unable to be obtained yesterday due to patient fatigue and weakness. Head CT showed no pathology and chest XR was unremarkable. - continue to monitor ekg - eeg ordered - complete orthostatics #Positive urinalysis: Upon admission, the urinalysis obtained displayed nitrates and leukocytes esterase and was started on ceftriaxone. Urine cultures came back negative and so the patient was discontinued off antibiotics and determined chronic urinary colonizaion. #History of CKD: Cr and BUN were found to be consistant with patients baseline
--- NOTE | 2017-11-15 15:43 | INTERVENTIONAL RADIOLOGY RPT ---
CLINICAL HISTORY: This patient is a 81 years old male with bladder cancer and long-term percutaneous nephrostomy tube in the left kidney, who presents to Interventional Radiology for routine exchange. 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 PROCEDURES: 1. Left tube nephrostogram. 2. Left nephrostomy tube exchange. 3. Left tube nephrostogram. PHYSICIANS: Dr. Don Ayers (attending). MONITORING: The procedure was performed without sedation. Continuous blood pressure, pulse oximetry as well as heart rate monitoring was performed by an independent registered nurse. MEDICATIONS: Lidocaine 1%, 1 mL SQ. CONTRAST: 10 mL Optiray 320 FLUOROSCOPY TIME: 47 seconds TOTAL NUMBER OF IMAGES: 63 COMPLICATIONS: None ESTIMATED BLOOD LOSS: <5 mL SPECIMENS: None IMPLANT: None SITE MARKING: As part of the preprocedure verification policy, a site marking procedure was initiated. Due to the nature the procedure, the insertion site could not be predetermined thus invoking the policy of exemption to site laterality and marking. Insertion site marking was performed in the procedure room in conjunction with imaging confirmation. PROCEDURE NOTE: Informed consent was obtained from the patient prior to the procedure. During this process, the procedure and potential alternatives were explained along with the intended outcome and benefits. The risks of the procedure, including the possibility of an unsuccessful procedure, as well as the risk of not doing the procedure, were discussed. The patient was given the opportunity to ask questions regarding the procedure and appeared competent to make decisions. A signed consent form documenting this discussion was placed in the medical record. A time-out procedure was performed. The patient was placed prone on the fluoroscopy table. The back was prepped and draped in usual sterile fashion. All elements of maximal sterile barrier technique followed including use of cap, mask, sterile gown, sterile gloves, a sterile full body drape and hand hygiene. Also followed skin preparation with 2% chlorhexidine for cutaneous antisepsis, and sterile ultrasound preparation with sterile gel and probe cover when applicable. 1% lidocaine was used to obtain local anesthesia the skin and deeper tissues. Gentle contrast injection through the existing nephrostomy catheter demonstrated tip position in the renal pelvis. A 0.035 in short stiff glide guide wire was advanced through the existing 8.5-Fr ReSolve nephrostomy tube into the renal pelvis. The existing tube was removed over the wire. A new 8.5-Fr ReSolve nephrostomy tube was advanced over the wire into the renal pelvis. The guide wire was removed and the tube was locked in position. Final injection of injection verified tube position within the renal pelvis. The tube was secured to the skin with 0 silk suture. The patient does not request a StatLock device. The patient tolerated the procedure well. FINDINGS: 1. Successful exchange of the existing left-sided nephrostomy tube. 2. Postexchange nephrostogram demonstrates excellent positioning within the renal pelvis. IMPRESSION: Successful exchange of the left nephrostomy tube. PLAN: 1. The patient was stable after the procedure and was transferred to the interventional recovery area. The patient will be transferred to the floor. 2. The tube should be left to external gravity drainage via drainage bag. 3. The patient should return to interventional radiology in 8-12 weeks for routine catheter exchange.
[2017-11-15 16:00] VITALS: BP 140/78
--- NOTE | 2017-11-15 17:07 | ELECTROENCEPHALOGRAM REPORT ---
Electroencephalogram Report Electroencephalogram Results Date of service: 11/15/17 Attending MD: Robert Amaya MD Director Independent: Ilana Grullon EEG Number: [id number] Test Utilizes: 10-20 system, 21 lead 18 channel digital recording Pertinent Hx/Physical/Neuro Findings/Clin Diagnosis: syncope r/o seizure Inpatient Medications: Current Medications Sig/Brian Start time Last Medication Dose Route Stop Time Status Admin Acetaminophen 1,000 MG Q6P PRN 11/14 1200 AC 11/14 IV 2027 Atorvastatin Calcium 10 MG 1700 11/15 1700 AC 11/15 PO 1651 Atropine Sulfate 1 MG ONCE PRN 11/14 1345 AC IV Ceftriaxone Sodium 1,000 MG DAILY 11/14 1201 DC 11/15 IV 0854 Dextrose/Sodium 1,000 ML .[id number] 11/14 1200 DC 11/14 Chloride IV 2250 Heparin Sodium 5,000 UNIT Q8 11/14 1400 AC 11/15 (Porcine) SC 0528 Influenza Virus 0.5 ML ONCE ONE 11/15 0545 DC 11/15 Vaccine IM 11/15 0546 0611 Lidocaine 0 .STK-MED ONE 11/15 1228 DC .ROUTE Magnesium Oxide 400 MG ONE ONE 11/15 0830 DC 11/15 PO 11/15 0831 1007 Interpretation: EEG in wake state Background 9-10 cps activity low voltage 18-22 cps activity frontally photic stim: no abnormalities No focal or epileptiform activity Impression: Normal EEG in wake state
[2017-11-15 22:50] VITALS: BP 140/72
[2017-11-16 06:30] VITALS: BP 120/68
--- NOTE | 2017-11-16 08:02 | PN- Housestaff ---
Subjective Follow-up For: Syncope Sinus bradycardia. Depression and PTSD. Tele-Events Since Last Visit: Patient remained in sinus rhythm with heart rate between 6876 Subjective: No overnight events. Patient remained afebrile. Seen and examined this morning. He denied chest pain, palpitation, lightheadedness, chill, fever, nausea, vomiting, abdominal pain dysuria. Patient is feeling much improved. He walked around yesterday and his heart rate improved. He did not feel any lightheadedness or dizziness. Patient is being admitted to hospital from observation as patient had tachycardia after ambulation and his heart rate went to 100s. Patient could have tachybradycardia syndrome so he needs further follow-up on telemetry floor. Considering patient's depression and PTSD syndrome he needs psychiatry evaluation while an inpatient. We will ambulate him today again and check his heart rate. Review of Systems Constitutional: Denies: chills, fever. EENTM: Reports: no symptoms. Cardiovascular: Denies: chest pain, palpitations, syncope. Respiratory: Denies: cough, short of breath, sputum production. Gastrointestinal: Denies: abdominal pain, constipation, diarrhea, nausea, vomiting. Genitourinary: Reports: no symptoms. Musculoskeletal: Reports: no symptoms. Neurological/Psychological: Reports: see HPI. Objective Last 24 Hrs of Vital Signs/I&O Vital Signs Date Time Temp Pulse Resp B/P B/P Pulse O2 O2 Flow FiO2 Mean Ox Delivery Rate 11/16 0630 98.1 84 18 120/68 98 Room Air 11/15 2250 98.1 64 18 140/72 98 Nasal Cannula 11/15 2114 Nasal 0.5L Cannula 11/15 1600 97.9 52 18 140/78 98 Nasal 0.5L Cannula Intake & Output 11/16 1600 11/16 0800 11/16 0000 Intake Total 500 Output Total 1225 675 Balance -725 -675 Intake, Oral 500 Output, Urine 1225 675 Patient 178 lb Weight Weight Bed scale Measurement Method Physical Exam General Appearance: Alert, Oriented X3, Cooperative Skin Temp/Moisture Exam: Warm/Dry Sepsis Skin Exam (color): Normal for Ethnicity HEENT: Atraumatic, PERRLA, EOMI Neck: Supple Cardiovascular: Normal S1, Normal S2 Lungs: Clear to Auscultation Abdomen: Soft, No Tenderness Neurological: Normal Speech, Strength at 5/5 X4 Ext, Normal Tone Extremities: No Edema Assessment/Plan Assessment: 81 YO M with PMH of BPH status post TURP, CKD stage IIIB, indwelling left nephrostomy tube, hypertension, hyperlipidemia, bladder cancer status post treatment (2008), and "open heart surgery" seen for evaluation of a syncopal episode. Seeing the patient on telemetry floor for following problems. Under observation. Syncopal episode:(resolved) -Patient had syncopal episode yesterday when he was in IR suite for nephrostomy tube change. Patient denied any nausea or vomiting before syncopal episode. -Neurology evaluated the patient for any seizure activity and recommended EEG. -His EEG is normal -Follow-up cardiology recommendations -His echocardiogram showed ejection fraction more than 55% without wall motion abnormality. -We will check his orthostatic vitals before he leaves -His CT scan had remained negative for any intracranial pathology. Chronic colonization of urine: -Patient has positive UA but his urine culture is negative. -On ceftriaxone day 2. Ceftriaxone has been discontinued as his urine culture remained negative, showed possible chronic colonization. Sinus bradycardia:(improved) -Patient remained asymptomatic -Pacer pads and atropine on bedside -Holding his beta-yuni because of bradycardia. -If he becomes symptomatic with bradycardia he may need permanent pacemaker. -We will walk him around again and check his heart rate if it goes up in 100s again and then patient may need low dose of beta-yuni. Depression and PTSD: -His recently and patient is depressed and sometimes has PTSD symptoms. Patient also has had some kind of panic attacks sometimes. -Psychiatry recommended 5 mg of citalopram. Patient will follow psychiatry as outpatient after the discharge. History of chronic kidney disease: -Patient has CKD stage III -On baseline BUN and creatinine. History of hypertension and hyperlipidemia: -Holding his metoprolol due to bradycardia and syncopal episode. -Continue Lipitor History of bladder cancer status post treatment and left nephrostomy tube placement: -Nephrostomy tube will be changed by IR before he goes home. -Patient will follow with his urologist after discharge. DVT prophylaxis: Mechanical and subcutaneous heparin CODE STATUS: DNR/intu Problem List: 1. Syncope 2. Depression 3. Bradycardia Pain Ratin Pain Location: NONE Pain Goal: Remain pain free Pain Plan: PAIN PATHWAY Tomorrow's Labs & Rationales: BEP/MAG
--- NOTE | 2017-11-16 10:09 | PN- Att Addend ---
Attending Addendum Attending Brief Note Patient not feeling well. Symptoms of his depression are worse patient is anxious is crying. His son just came in to see him, his pulse now is between 101 10. No other changes on physical. I spoke to cardiology. We might need to restart the beta yuni. For that reason the patient will be admitted. He also will need psychiatric input, patient still very upset since the of his which happened recently. Intake & Output 11/16 Intake Total 500 300 Output Total 7295 718 4211 550 400 Balance -550 -850 -1275 -550 -400 Intake, Oral 500 300 Number 1 Bowel Movements Output, Urine 2671 462 2336 550 400 Patient 178 lb 180 lb 180 lb Weight Weight Bed scale Reported by Patient Measurement Method Laboratory Tests 11/16/17 0615: Anion Gap 7, Estimated GFR 23 L, BUN/Creatinine Ratio 8.9, Magnesium 1.8 11/15/17 0620: Anion Gap 5, Estimated GFR 25 L, BUN/Creatinine Ratio 11.2, Magnesium 1.9, CBC w Diff MAN DIFF ORDERED, RBC 5.01, MCV 64.4 L, MCH 20.2 L, MCHC 31.4 L, RDW 15.9 H, MPV 9.7, Gran % 66.3, Lymphocytes % 24.0, Monocytes % 6.1, Eosinophils % 3.4, Basophils % 0.2, Absolute Granulocytes 4.1, Segmented Neutrophils 60, Absolute Lymphocytes 1.5, Lymphocytes 25, Monocytes 8, Absolute Monocytes 0.4, Eosinophils 5, Absolute Eosinophils 0.2, Basophils 2, Absolute Basophils 0, Platelet Estimate VERIFIED BY SMEAR, Polychromasia 1+, Hypochromic-Microcytic 1+ , Poikilocytosis 1+, Basophilic Stippling 1+, Anisocytosis 1+, Microcytic Cells 1+, Ovalocytes 1+ 11/14/17 2005: Troponin I 0.02 11/14/17 1350: Troponin I 0.02 11/14/17 1123: Lactic Acid Cancelled 11/14/17 0836: Anion Gap 5, Estimated GFR 22 L, BUN/Creatinine Ratio 11.8, Glucose 82, Lactic Acid 1.4, Calcium 8.7, Total Bilirubin 0.4, AST 21, ALT 25, Alkaline Phosphatase 61, Troponin I 0.01, Total Protein 6.1 L, Albumin 3.4 L, Globulin 2.7, Albumin /Globulin Ratio 1.3, D-Dimer High Sensitivty 423 H, CBC w Diff NO MAN DIFF REQ, RBC 5.05, MCV 63.8 L, MCH 20.3 L, MCHC 31.8 L, RDW 16.0 H, MPV 9.1, Gran % 70.6, Lymphocytes % 17.3 L, Monocytes % 9.8 H, Eosinophils % 2.2, Basophils % 0.1, Absolute Granulocytes 5.2, Absolute Lymphocytes 1.3, Absolute Monocytes 0.7 H, Absolute Eosinophils 0.2, Absolute Basophils 0, Urinalysis LIGHT H, Urine Color YEL, Urine Clarity HAZY H, Urine pH 6.0, Ur Specific [place] 1.025, Urine Protein 100 H, Urine Ketones NEG, Urine Nitrite POS H, Urine Bilirubin NEG, Urine Urobilinogen 0.2, Ur Leukocyte Esterase LARGE H, Ur Microscopic SEDIMENT EXAMINED, Urine RBC 15-25 H, Urine WBC PACKD H, Ur Epithelial Cells RARE, Urine Bacteria MANY H, Urine Hemoglobin MOD H, Urine Glucose NEG Microbiology 11/14 2129 BLOOD: Blood Culture - RES 11/14 1226 BLOOD: Blood Culture - RES 11/15 835 URINE ROUT: Urine Culture - COMP 11/14 822 URINE ROUT: Urine Culture - CAN Cancelled: Cancelled via OE: ADDED ON Microbiology 11/14 2129 BLOOD: Blood Culture - RES 11/14 1226 BLOOD: Blood Culture - RES 11/15 835 URINE ROUT: Urine Culture - COMP 11/14 822 URINE ROUT: Urine Culture - CAN Cancelled: Cancelled via OE: ADDED ON Vital Signs Date Time Temp Pulse Resp B/P B/P Pulse O2 O2 Flow FiO2 Mean Ox Delivery Rate 11/16 0630 98.1 84 18 120/68 98 Room Air 11/15 2250 98.1 64 18 140/72 98 Nasal Cannula 11/15 2114 Nasal 0.5L Cannula 11/15 1600 97.9 52 18 140/78 98 Nasal 0.5L Cannula
--- NOTE | 2017-11-16 11:11 | PN- Cardiology ---
Subjective Subjective: Apparently was doing well until this morning. Ambulated for 10-15 minutes. Subsequently became dyspneic with numbness and tingling of the arms and fingers. Very anxious and tearful at the present time. During ambulation, heart rate rinku to 124 minute. Currently in the 80s. Objective Vital Signs and I&Os Vital Signs Date Time Temp Pulse Resp B/P B/P Pulse O2 O2 Flow FiO2 Mean Ox Delivery Rate 11/16 629 98.1 84 18 120/68 98 Room Air 11/15 2250 98.1 64 18 140/72 98 Nasal Cannula 11/15 2113 Nasal 0.5L Cannula 11/16 1599 97.9 52 18 140/78 98 Nasal 0.5L Cannula Intake & Output 11/16 1600 11/16 0800 11/16 0000 11/15 1600 11/15 0000 Intake Total 500 300 Output Total 0701 732 7115 500 550 Balance -725 -675 -775 -500 -550 Intake, Oral 500 300 Number 1 Bowel Movements Output, Urine 7483 202 9244 500 550 Patient 178 lb 180 lb Weight Weight Bed scale Measurement Method Physical Exam: Gen: NAD HEENT: normal Lungs: clear to auscultation, normal resp. effort Heart: RRR, S1, S2, no murmurs Abdomen: Soft, nontender, no masses Extremities: No clubbing, cyanosis, or edema. Neuro: Alert and oriented x 3, cranial nerves intact Current Medications: Current Medications Sig/Brian Start time Last Medication Dose Route Stop Time Status Admin Acetaminophen 1,000 MG Q6P PRN 11/14 1200 AC 11/14 IV 2027 Atorvastatin Calcium 10 MG 1700 11/15 1700 AC 11/15 PO 1651 Atropine Sulfate 1 MG ONCE PRN 11/14 1345 AC IV Heparin Sodium 5,000 UNIT Q8 11/14 1400 AC 11/16 (Porcine) SC 0545 Lidocaine 0 .STK-MED ONE 11/15 1228 DC .ROUTE Patient Medication 1 ED ONE ONE 11/15 1929 IN 11/15 [facility] ED 11/15 Results Last 48 Hrs of Labs/Mics: Laboratory Tests 11/16/17 0615: Anion Gap 7, Estimated GFR 23 L, BUN/Creatinine Ratio 8.9, Magnesium 1.8 11/15/17 0620: Anion Gap 5, Estimated GFR 25 L, BUN/Creatinine Ratio 11.2, Magnesium 1.9, CBC w Diff MAN DIFF ORDERED, RBC 5.01, MCV 64.4 L, MCH 20.2 L, MCHC 31.4 L, RDW 15.9 H, MPV 9.7, Gran % 66.3, Lymphocytes % 24.0, Monocytes % 6.1, Eosinophils % 3.4, Basophils % 0.2, Absolute Granulocytes 4.1, Segmented Neutrophils 60, Absolute Lymphocytes 1.5, Lymphocytes 25, Monocytes 8, Absolute Monocytes 0.4, Eosinophils 5, Absolute Eosinophils 0.2, Basophils 2, Absolute Basophils 0, Platelet Estimate VERIFIED BY SMEAR, Polychromasia 1+, Hypochromic-Microcytic 1+ , Poikilocytosis 1+, Basophilic Stippling 1+, Anisocytosis 1+, Microcytic Cells 1+, Ovalocytes 1+ 11/14/17 2005: Troponin I 0.02 11/14/17 1350: Troponin I 0.02 11/14/17 1123: Lactic Acid Cancelled Assessment/Plan Assessment/Plan Assessment: * Hypertension * Hyperlipidemia * Remote history of ASD repair * Syncope, uncertain etiology * Sinus bradycardia, heart rate dropping to 30's Plan: -Consider transitioning the patient to full admission -Continue to monitor on telemetry for now. -Ambulate the patient again after lunchtime. -Recheck orthostatic heart rate and blood pressure -Consider crisis/psych input for further assistance and evaluation -I suspect, that there is a's component of beta-yuni withdrawal in his case. His resting heart rate remains stable but with activity his heart rate is significantly elevated. Hopefully this will normalize over the next 24-48 hours. If not, we may need to consider restarting a very low dose of oral beta yuni. -Situation was discussed with the patient, his family/daughter, Dr. Amaya, and the housesta. Check orthostatics * Continue to monitor on telemetry, and ambulate patient * No clear evidence that syncope was secondary to bradycardia. Of note, the patient had presyncopal symptoms in the emergency department during which his heart rate was greater than 50 on telemetry. If evidence of symptomatic bradycardia is seen, then permanent pacemaker placement would be indicated. Continue telemetry? Yes
--- NOTE | 2017-11-16 12:42 | Cons- Psychiatry ---
Psychiatric Consult Date of Consult: 11/16/17 Reason for Consult: Assessment of depression and anxiety History of Present Illness: This 81-year-old male was admitted on November 14 following a syncopal episode. Staff had noticed that he was very anxious and depressed and requested a psychiatric consultation. The patient reports that his mood is extremely depressesd. He describes feeling "terrible, defenseless, last and worthless". His denies on October 06 of this year. Since then he is found that he is unable to take care of himself "I worry about everything". He reports discrete episodes of intense anxiety. He reports feeling guilty about his dying. Patient also reports that he is increasingly troubled by nightmares, flashbacks and intrusive thoughts of his experience. He reports that his appetite is poor "I eat because I am supposed to". He reports that his concentration is poor. He reports poor sleep with visual stylist awakening. The patient reports a strong desire to . He states he would not take his own life due to holiness experience he had several years ago. There are no psychotic symptoms. The patient reports that he was in the from 1955-. He reports that he had no difficulties until 2 years ago when he was inadvertently given an anesthetic that "suppressed my present memories and may be regressing time". Since that time he reports nightmares, intrusive thoughts and flashbacks. The patient's son who is a psychologist was present for some of the interview with the patient's request. With the patient's permission I met with his son alone afterwards. His son reports that the patient is over reporting his symptoms as "he wanted to know how serious this is". He also reports concerns about his father's cognitive status saying that his father has been intermittently "delirious". He believes that his father has some underlying cognitive deficits that his mother compensated for while she was alive. The patient denies drug or alcohol use. 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 The patient also reports a history of angioplasty and "open heart surgery". Allergies: Coded Allergies: cephalexin (Severe, DIARRHEA 02/05/17) midazolam (From VERSED) (Mild, BECAME ANGRY AND UPSET 02/05/17) Anesthetics - Amide Type (DISORIENTED, REGRESSION IN TIME, LOSS OF MEMORY ) Anesthetics - Chyna Type- Parabens (DISORIENTED, REGRESSION OF TIME, LOSS OF MEMORY 02/05/17) Benzodiazepines (CONFUSION 02/05/17) adhesive tape (BLISTERS - PAPER TAPE ONLY 02/05/17) cortisone (PAIN FROM INJECTION FOR A LONG TIME 02/05/17) diazepam (From VALIUM) (BECAME ANGRY AND UPSET 02/05/17) sevelamer (From RENVELA) (URINARY RETENTION, CONSTIPATION, LEG SWELLING 02/05/17 ) Current Medications: Med Acetaminophen 1,000 MG IV Q6P PRN 11/14/17 1200 Atorvastatin Calcium 10 MG PO 1700 11/15/17 1700 Atropine Sulfate 1 MG IV ONCE PRN 11/14/17 1345 Heparin Sodium (Porcine) 5,000 UNIT SC Q8 11/14/17 1400 Past History Past Medical History Neurological: PARTIAL RT HEARING LOSS EENT: NONE Cardiovascular: hypertension, hyperlipidemia, OPEN HEART SX Respiratory: NONE Gastrointestinal: NONE Hepatic: hepatitis B Renal: benign prost hyperplasia, CKD INDWELLING PRADO UTI NEPHROSTOMY TUBE Musculoskeletal: R ORIF Psychiatric: NONE Endocrine: BPH WITH TURP Blood Disorders: anemia, THALASEMIA Cancer(s): BLADDER CA (2008) Past Surgical History Surgical History: appendectomy, cholecystectomy, OPEN HEART BACK SURGERY Substance Abuse Treatment Comments: See HPI Assessment/Plan Mental Status Orientation: Person, Place, Situation Mental Status Exam: The patient is a thin, 81-year-old male with left nephrostomy tube. He was encountered sitting erect in a chair by his bed. He was alert and oriented 3. Gait is unsteady. Eye contact was good. Speech was normal in rate, rhythm, volume and tone. He described his mood as "terrible". Affect was depressed and anxious. He was not suicidal or homicidal but describes feelings of hopelessness and futility. Thought process was normal in tempo. He was difficult to interrupt or redirect at times. Thought form was normal. There were feelings of guilt which were not of delusional intensity. There were no delusions or obsessions noted. Attention and concentration were fair. There was no perceptual abnormality. Impulse control was good. Recent and remote memory were intact. Intelligence level is likely average, fund of knowledge average, use of language appropriate. Patient's insight is fair, judgment unimpaired. Lab Results: Lab BUN 24 mg/dL H 11/16/17 0615 Chloride 109 mmol/L H 11/16/17 0615 Creatinine 2.7 mg/dL H 11/16/17 0615 Estimated GFR 23 ml/min L 11/16/17 0615 Magnesium 1.8 mg/dL 11/16/17 0615 Troponin I 0.02 ng/ml 11/14/172004 D-Dimer High Sensitivty 423 ng/ml H 11/14/17 0836 Hct 32.3 % L 11/15/17 0620 Hgb 10.1 G/DL L 11/15/17 0620 MCH 20.2 PG L 11/15/17 0620 MCHC 31.4 G/DL L 11/15/17 0620 MCV 64.4 FL L 11/15/17 0620 RDW 15.9 % H 11/15/17 0620 Ur Leukocyte Esterase LARGE H 11/14/17 0836 Ur Specific [place] 1.025 11/14/17 0836 Urinalysis LIGHT H 11/14/17 0836 Urine Bacteria MANY H 11/14/17 0836 Urine Bilirubin NEG 11/14/17 0836 Urine Clarity HAZY H 11/14/17 0836 Urine Color YEL 11/14/17 0836 Urine Hemoglobin MOD H 11/14/17 0836 Urine Ketones NEG 11/14/17 0836 Urine Nitrite POS H 11/14/17 0836 Urine Protein 100 MG/DL H 11/14/17 0836 Urine RBC 15-25 /HPF H 11/14/17 0836 Urine WBC PACKD /HPF H 11/14/17 0836 Diffential Diagnosis: - Adjustment disorder with depressed mood and anxious distress - Rule out post traumatic stress disorder - Rule out neurocognitive impairment [CT brain on admission shows no evidence of ventricular dilatation or volume loss] -Rule out hypothyroidism Impression: 81-year-old male who his approximately 6 weeks ago presenting with symptoms of anxiety and depression. Also presenting with some symptoms of posttraumatic stress disorder. No gross evidence of neurocognitive impairment Provisional Treatment Plan: - Suggest adding S-Citalopram at a dose of 5 mg daily. Both patient and son agreeable to this. -TSH elevated at 5.7 when last checked in June 2015. T4 normal at that time. Suggest rechecking TSH R. -The patient's son is concerned about possible underlying cognitive impairment. Suggest social work consult to help with resources. No evidence of volume loss on CT. -Suggest outpatient follow-up. The patient's son indicates that his father will not agree but this should be raised again at the time of discharge. Psychiatry will sign off for now. Thank you for consulting us on this patient.
[2017-11-16 14:34] VITALS: BP 120/60
[2017-11-16 16:49] VITALS: BP 150/80
[2017-11-16 21:59] VITALS: BP 140/70
[2017-11-17 06:44] VITALS: BP 138/74
--- NOTE | 2017-11-17 07:43 | PN- Housestaff ---
Subjective Follow-up For: Syncope Sinus bradycardia. Depression and PTSD. Tele-Events Since Last Visit: Patient remained in sinus rhythm with heart rate between 6978. Patient had PVCs and run of 34 beats of V. tach yesterday. Subjective: No overnight events. Patient remained afebrile. Seen and examined this morning. He denied chest pain, palpitation, nausea, vomiting, chill, fever, abdominal pain dysuria. Patient is still feeling anxious. We will walk around today and check his heart rate. We will check his orthostatic vitals again. Review of Systems Constitutional: Denies: chills, fever. EENTM: Reports: no symptoms. Cardiovascular: Denies: chest pain, orthopena, palpitations, syncope. Respiratory: Denies: cough, short of breath, sputum production, wheezing. Gastrointestinal: Denies: abdominal pain, bloating, constipation, diarrhea, nausea, vomiting. Genitourinary: Reports: no symptoms. Neurological/Psychological: Reports: anxiety. Objective Last 24 Hrs of Vital Signs/I&O Vital Signs Date Time Temp Pulse Resp B/P B/P Pulse O2 O2 Flow FiO2 Mean Ox Delivery Rate 11/17 0644 97.9 71 18 138/74 98 Room Air 11/16 2159 97.8 74 19 140/70 98 Room Air 11/16 2118 Room Air 11/16 1649 79 150/80 11/16 1434 98.6 98 18 120/60 98 Room Air Intake & Output 11/17 1600 11/17 0800 11/17 0000 Intake Total 400 400 Output Total 1550 300 Balance -1150 100 Intake, Oral 400 400 Output, Urine 1550 300 Physical Exam General Appearance: Alert, Oriented X3, Cooperative Skin Temp/Moisture Exam: Warm/Dry Sepsis Skin Exam (color): Normal for Ethnicity HEENT: Atraumatic, PERRLA, EOMI Neck: Supple Cardiovascular: Normal S1, Normal S2 Lungs: Clear to Auscultation Abdomen: Soft, No Tenderness Neurological: Normal Speech, Strength at 5/5 X4 Ext, Normal Tone Extremities: No Edema Assessment/Plan Assessment: 81 YO M with PMH of BPH status post TURP, CKD stage IIIB, indwelling left nephrostomy tube, hypertension, hyperlipidemia, bladder cancer status post treatment (2008), and "open heart surgery" seen for evaluation of a syncopal episode. Seeing the patient on telemetry floor for following problems. Under observation. Syncopal episode:(resolved) -Patient had syncopal episode yesterday when he was in IR suite for nephrostomy tube change. Patient denied any nausea or vomiting before syncopal episode. -Neurology evaluated the patient for any seizure activity and recommended EEG. -His EEG is normal -Follow-up cardiology recommendations -His echocardiogram showed ejection fraction more than 55% without wall motion abnormality. -His orthostatic vitals are negative -His CT scan had remained negative for any intracranial pathology. Chronic colonization of urine: -Patient has positive UA but his urine culture is negative. -On ceftriaxone day 2. Ceftriaxone has been discontinued as his urine culture remained negative, showed possible chronic colonization. Sinus bradycardia:(improved) -Patient remained asymptomatic -Pacer pads and atropine on bedside -Holding his beta-yuni because of bradycardia. -If he becomes symptomatic with bradycardia he may need permanent pacemaker. -Patient's heart rate has been improved and overnight he remained between 6978. We will check his heart rate while ambulation if patient's heart rate went up in 100s then he may need small dose of beta-yuni before he leaves. -Orthostatics are negative Depression and PTSD: -His recently and patient is depressed and sometimes has PTSD symptoms. Patient also has had some kind of panic attacks sometimes. -Psychiatry recommended 5 mg of citalopram. Patient will follow psychiatry as outpatient after the discharge. History of chronic kidney disease: -Patient has CKD stage III -On baseline BUN and creatinine. History of hypertension and hyperlipidemia: -Holding his metoprolol due to bradycardia and syncopal episode. -Continue Lipitor History of bladder cancer status post treatment and left nephrostomy tube placement: -Nephrostomy tube will be changed by IR before he goes home. -Patient will follow with his urologist after discharge. DVT prophylaxis: Mechanical and subcutaneous heparin CODE STATUS: DNR/intu Problem List: 1. Depression 2. Syncope Pain Ratin Pain Location: none Pain Goal: Remain pain free Pain Plan: pain pathway Tomorrow's Labs & Rationales: none
[2017-11-17] MEDS ORDERED: CITALOPRAM HBR10 MG PO (09:15)
--- NOTE | 2017-11-17 10:06 | PN- Cardiology ---
Subjective Subjective: Feeling well. No chest pain. No shortness of breath. No palpitations. No diaphoresis. No lightheadedness or dizziness. Objective Vital Signs and I&Os Vital Signs Date Time Temp Pulse Resp B/P B/P Pulse O2 O2 Flow FiO2 Mean Ox Delivery Rate 11/17 0644 97.9 71 18 138/74 98 Room Air 11/16 2159 97.8 74 19 140/70 98 Room Air 11/16 2118 Room Air 11/16 1649 79 150/80 11/16 1434 98.6 98 18 120/60 98 Room Air Intake & Output 11/17 1600 11/17 0800 11/17 0000 11/16 1600 11/16 0800 11/16 0000 Intake Total 400 400 500 500 Output Total 1550 885 998 5192 675 Balance -1150 100 -100 -725 -675 Intake, Oral 400 400 500 500 Number 1 Bowel Movements Output, Urine 1550 403 560 4722 675 Patient 176 lb 178 lb Weight Weight Bed scale Measurement Method Physical Exam: Gen: NAD HEENT: normal Lungs: clear to auscultation, normal resp. effort Heart: RRR, S1, S2, no murmurs Abdomen: Soft, nontender, no masses Extremities: No clubbing, cyanosis, or edema. Neuro: Alert and oriented x 3, cranial nerves intact Current Medications: Current Medications Sig/Brian Start time Last Medication Dose Route Stop Time Status Admin Acetaminophen 1,000 MG Q6P PRN 11/14 1200 AC 11/14 IV 2027 Atorvastatin Calcium 10 MG 1700 11/15 1700 AC 11/16 PO 1602 Atropine Sulfate 1 MG ONCE PRN 11/14 1345 AC IV Citalopram 5 MG DAILY 11/16 1526 AC 11/17 Hydrobromide PO 0725 Heparin Sodium 5,000 UNIT Q8 11/14 1400 AC 11/17 (Porcine) SC 0454 Magnesium Oxide 400 MG ONE ONE 11/17 1000 AC PO 11/17 1001 Magnesium Oxide 400 MG ONE ONE 11/16 1145 DC 11/16 PO 11/16 1146 1602 Patient Medication 1 ED ONE ONE 11/16 1215 DC Teaching ED 11/16 1216 Results Last 48 Hrs of Labs/Mics: Laboratory Tests 11/17/17 0622: Anion Gap 11, Estimated GFR 23 L, BUN/Creatinine Ratio 10.0, Magnesium 1.9, Free T4 1.24, Total T3 1.01, TSH &T3 &Free T4 Intrp 8.220 H 11/16/17 0615: Anion Gap 7, Estimated GFR 23 L, BUN/Creatinine Ratio 8.9, Magnesium 1.8 Assessment/Plan Assessment/Plan Assessment: * Hypertension * Hyperlipidemia * Remote history of ASD repair * Syncope, uncertain etiology * Sinus bradycardia, heart rate dropping to 30's. Resoved with stopping beta yuni. Plan: * Continue current medication * Would avoid restarting metoprolol if possible given significant sinus bradycardia on admission Continue telemetry? Yes
--- NOTE | 2017-11-17 11:37 | Discharge Summary ---
Visit Information Visit Dates Admission Date: 11/16/17 Discharge Date: 11/18/17 Hospital Course Course Attending Physician: Robert Amaya MD Primary Care Physician: Robert Amaya MD Hospital Course: 81 YO M with PMH of BPH status post TURP, CKD stage IIIB, indwelling left nephrostomy tube, hypertension, hyperlipidemia, bladder cancer status post treatment (2008), and "open heart surgery" seen for evaluation of a syncopal episode. ED course: Vital: Temperature 98.6, pulse 58, respiratory rate 18, blood pressure 193/76, oxygen saturation 98% on room air. Labs: WBC count 7.3, hemoglobin 10.3, hematocrit 32.2, platelet count 194, sodium 142, potassium 4.4, BUN 33, creatinine 2.8, anion gap 5, glucose 82, lactic acid 1.4, calcium 8.7, AST 21, ALT 25, alkaline phosphatase 61, d-dimer 423, albumin 3.4 Syncopal episode: Patient was admitted with syncopal episode when he was in straight for nephrostomy tube change. Possibly due to vasovagal but its histology remained unknown. His metoprolol was held. His heart rate was in 30s. Patient was admitted on telemetry floor and observed on telemetry. Later on patient heart rate improved and he remained asymptomatic. His head CT scan was negative for any intracranial pathology. His echocardiogram showed ejection fraction more than 55% without any wall motion abnormality. His orthostatics remained negative. Patient's heart rate was checked during ambulation and his heart rate went to 90s and low 100s. Patient did not have any arrhythmia during his stay in hospital. Patient was instructed to follow cardiology as outpatient for further workup, possible Holter monitor to better check his heart range. Chronic colonization of urine: Patient was covered with antibiotics for 2 day with ceftriaxone as his UA was dirty. His urine cultures showed multiple ivan possible due to contamination. Patient had chronic colonization and he remained asymptomatic that is why his antibiotics were discontinued after 2 days. Patient remained afebrile and WBC count remained within normal limits. Sinus bradycardia: Patient was bradycardic in 30s. During hospital stay he remained asymptomatic. His metoprolol was discontinued. His heart rate improved to 70s and 80s. His heart rate was monitored during ambulation that remained in the 90s and low 100s. Cardiology cleared the patient to be discharged without metoprolol. Patient was instructed to follow cardiology as outpatient. Depression and PTSD: His recently and patient is depressed and sometimes has PTSD symptoms. Patient also has had some kind of panic attacks sometimes. Psychiatry recommended 5 mg of citalopram. Patient had diarrhea due to citalopram and he does not want to take it. Psychiatry recommended to take medication with food. His appointment was scheduled with outpatient psychiatry on 01 December at 1 PM. Patient was instructed to follow psychiatry as outpatient for further recommendations per his antidepressant medications. History of chronic kidney disease: Patient had chronic kidney injury stage III. His BUN and creatinine remained stable. History of hypertension and hyperlipidemia: Patient metoprolol was discontinued due to bradycardia. His blood pressure during hospital stay remained stable. His Lipitor was continued. Patient was instructed to follow his primary care physician and cardiology as outpatient. History of bladder cancer status post treatment and left nephrostomy tube placement: His nephrostomy tube was exchanged and it is working properly. DVT prophylaxis: Mechanical and subcutaneous heparin CODE STATUS: DNR/intu Allergies: Coded Allergies: cephalexin (Severe, DIARRHEA 02/05/17) midazolam (From VERSED) (Mild, BECAME ANGRY AND UPSET 02/05/17) Anesthetics - Amide Type (DISORIENTED, REGRESSION IN TIME, LOSS OF MEMORY ) Anesthetics - Chyna Type- Parabens (DISORIENTED, REGRESSION OF TIME, LOSS OF MEMORY 02/05/17) Benzodiazepines (CONFUSION 02/05/17) adhesive tape (BLISTERS - PAPER TAPE ONLY 02/05/17) cortisone (PAIN FROM INJECTION FOR A LONG TIME 02/05/17) diazepam (From VALIUM) (BECAME ANGRY AND UPSET 02/05/17) sevelamer (From RENVELA) (URINARY RETENTION, CONSTIPATION, LEG SWELLING 02/05/17 ) Significant Procedures: Nephrostomy tube exchange on 11/15/2017: EXAM TYPE: IR - DRAINAGE CATHETER CHANGE; INTERVENTIONAL SETUP CLINICAL HISTORY: This patient is a 81 years old male with bladder cancer and long-term percutaneous nephrostomy tube in the left kidney, who presents to Interventional Radiology for routine exchange. 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 PROCEDURES: 1. Left tube nephrostogram. 2. Left nephrostomy tube exchange. 3. Left tube nephrostogram. PHYSICIANS: Dr. Don Ayers (attending). MONITORING: The procedure was performed without sedation. Continuous blood pressure, pulse oximetry as well as heart rate monitoring was performed by an independent registered nurse. MEDICATIONS: Lidocaine 1%, 1 mL SQ. CONTRAST: 10 mL Optiray 320 FLUOROSCOPY TIME: 47 seconds TOTAL NUMBER OF IMAGES: 63 COMPLICATIONS: None ESTIMATED BLOOD LOSS: <5 mL SPECIMENS: None IMPLANT: None SITE MARKING: As part of the preprocedure verification policy, a site marking procedure was initiated. Due to the nature the procedure, the insertion site could not be predetermined thus invoking the policy of exemption to site laterality and marking. Insertion site marking was performed in the procedure room in conjunction with imaging confirmation. PROCEDURE NOTE: Informed consent was obtained from the patient prior to the procedure. During this process, the procedure and potential alternatives were explained along with the intended outcome and benefits. The risks of the procedure, including the possibility of an unsuccessful procedure, as well as the risk of not doing the procedure, were discussed. The patient was given the opportunity to ask questions regarding the procedure and appeared competent to make decisions. A signed consent form documenting this discussion was placed in the medical record. A time-out procedure was performed. The patient was placed prone on the fluoroscopy table. The back was prepped and draped in usual sterile fashion. All elements of maximal sterile barrier technique followed including use of cap, mask, sterile gown, sterile gloves, a sterile full body drape and hand hygiene. Also followed skin preparation with 2% chlorhexidine for cutaneous antisepsis, and sterile ultrasound preparation with sterile gel and probe cover when applicable. 1% lidocaine was used to obtain local anesthesia the skin and deeper tissues. Gentle contrast injection through the existing nephrostomy catheter demonstrated tip position in the renal pelvis. A 0.035 in short stiff glide guide wire was advanced through the existing 8.5-Fr ReSolve nephrostomy tube into the renal pelvis. The existing tube was removed over the wire. A new 8.5-Fr ReSolve nephrostomy tube was advanced over the wire into the renal pelvis. The guide wire was removed and the tube was locked in position. Final injection of injection verified tube position within the renal pelvis. The tube was secured to the skin with 0 silk suture. The patient does not request a StatLock device. The patient tolerated the procedure well. FINDINGS: 1. Successful exchange of the existing left-sided nephrostomy tube. 2. Postexchange nephrostogram demonstrates excellent positioning within the renal pelvis. IMPRESSION: Successful exchange of the left nephrostomy tube. PLAN: 1. The patient was stable after the procedure and was transferred to the interventional recovery area. The patient will be transferred to the floor. 2. The tube should be left to external gravity drainage via drainage bag. 3. The patient should return to interventional radiology in 8-12 weeks for routine catheter exchange. Pertinent Lab Results: CT scan head on 11/14/2017; IMPRESSION: No acute intracranial pathology compared to 06/28/2015. Chest x-ray on 11/14/2017: IMPRESSION: Stable elevation of the right hemidiaphragm. Streaky subsegmental atelectasis. Trace effusion or pleural thickening right base. Cardiogram on 11/15/2017: CONCLUSIONS Mild concentric left ventricular hypertrophy. Normal left ventricular ejection fraction visually estimated at >55 %. Mild right atrial dilatation. Mild mitral regurgitation. Mild aortic regurgitation. Mild tricuspid regurgitation. Trace pulmonic regurgitation. WBC count 6.2, hemoglobin 10.1, hematocrit 32.3, platelet count 188, sodium 136, potassium 4.7, creatinine 2.7, BUN 28, magnesium 2.0 Disposition Summary Disposition Principal Diagnosis: Syncopal episode Sinus bradycardia Depression and PTSD Left nephrostomy tube exchange Additional Diagnosis: History of chronic kidney disease History of hypertension hyperlipidemia History of bladder cancer status post treatment and left nephrostomy tube placement Discharge Disposition: home health services Discharge Instructions General Discharge Information Code Status: Do Not Resucitate/Intubat Patient's Diet: Heart healthy diet Patient's Activity: Self-limited Follow-Up Instructions/Appts: Follow-up with your primary care physician in 1 week Follow-up with cardiology in 1 week Follow-up with outpatient psychiatry on 01 December at 1 PM for further recommendations her antidepressant medications. Medications at Discharge Discharge Medications: Stop taking the following medications: Metoprolol Succinate (Metoprolol Succinate) 25 MG TAB ORAL Every night Continue taking these medications: Atorvastatin Calcium (Atorvastatin Calcium) 10 MG TABLET 1 Tablet ORAL DAILY Comments: Last Taken: 11/16/16 Time: 9:30AM Finasteride (Finasteride) 5 MG TABLET 1 Tablet ORAL DAILY Comments: Last Taken: 11/16/16 Time: 9:30AM Start taking the following new medications: Citalopram Hydrobromide (Citalopram HBr) 10 MG TABLET 1 Tablet ORAL DAILY Qty = 30 No Refills Instructions: . Comments: Last Taken: 11/18/2017 Time: 07:25 AM Copies To: Jovanny Conde MD; Robert Amaya MD
--- NOTE | 2017-11-17 12:27 | PN- Att Addend ---
Attending Addendum Attending Brief Note Patient looks a little better today trying to ambulate with physical therapy still a little weak. Was seen by psychiatry and started on medication. His pulse is between 70 and 100 without beta-blockers. Rest of vital signs are stable. No major changes on physical. Son wanted the patient to go to short- term rehab but the patient refuses so will monitor him today have him ambulate make sure he is strong enough and if stable will let him go home in the morning with home care. Intake & Output 11/17 1600 11/17 0400 11/16 1600 11/16 0400 11/15 1600 11/15 0400 Intake Total 444 751 8636 300 Output Total 2244 319 1306 850 1575 550 Balance -1150 100 -650 -850 -1275 -550 Intake, Oral 954 686 8210 300 Number 1 1 Bowel Movements Output, Urine 0754 080 5618 850 1575 550 Patient 176 lb 178 lb 180 lb Weight Weight Bed scale Measurement Method Current Medications Sig/Brian Start time Last Medication Dose Route Stop Time Status Admin Acetaminophen 1,000 MG Q6P PRN 11/14 1200 AC 11/14 IV 2027 Atorvastatin Calcium 10 MG 1700 11/15 1700 AC 11/16 PO 1602 Atropine Sulfate 1 MG ONCE PRN 11/14 1345 AC IV Citalopram 5 MG DAILY 11/16 1526 AC 11/17 Hydrobromide PO 0725 Heparin Sodium 5,000 UNIT Q8 11/14 1400 AC 11/17 (Porcine) SC 0454 Magnesium Oxide 400 MG ONE ONE 11/17 1000 DC PO 11/17 1001 Laboratory Tests 11/17/17 0622: Anion Gap 11, Estimated GFR 23 L, BUN/Creatinine Ratio 10.0, Magnesium 1.9, Free T4 1.24, Total T3 1.01, TSH &T3 &Free T4 Intrp 8.220 H 11/16/17 0615: Anion Gap 7, Estimated GFR 23 L, BUN/Creatinine Ratio 8.9, Magnesium 1.8 11/15/17 0620: Anion Gap 5, Estimated GFR 25 L, BUN/Creatinine Ratio 11.2, Magnesium 1.9, CBC w Diff MAN DIFF ORDERED, RBC 5.01, MCV 64.4 L, MCH 20.2 L, MCHC 31.4 L, RDW 15.9 H, MPV 9.7, Gran % 66.3, Lymphocytes % 24.0, Monocytes % 6.1, Eosinophils % 3.4, Basophils % 0.2, Absolute Granulocytes 4.1, Segmented Neutrophils 60, Absolute Lymphocytes 1.5, Lymphocytes 25, Monocytes 8, Absolute Monocytes 0.4, Eosinophils 5, Absolute Eosinophils 0.2, Basophils 2, Absolute Basophils 0, Platelet Estimate VERIFIED BY SMEAR, Polychromasia 1+, Hypochromic-Microcytic 1+ , Poikilocytosis 1+, Basophilic Stippling 1+, Anisocytosis 1+, Microcytic Cells 1+, Ovalocytes 1+ 11/14/17 2005: Troponin I 0.02 11/14/17 1350: Troponin I 0.02 Microbiology 11/14 2129 BLOOD: Blood Culture - RES 11/14 1226 BLOOD: Blood Culture - RES Microbiology 11/14 2129 BLOOD: Blood Culture - RES 11/14 1226 BLOOD: Blood Culture - RES Vital Signs Date Time Temp Pulse Resp B/P B/P Pulse O2 O2 Flow FiO2 Mean Ox Delivery Rate 11/17 1005 Room Air 0.5L 11/17 0644 97.9 71 18 138/74 98 Room Air 11/16 2159 97.8 74 19 140/70 98 Room Air 11/16 2118 Room Air 11/16 1649 79 150/80 11/16 1434 98.6 98 18 120/60 98 Room Air
[2017-11-17 15:22] VITALS: BP 124/70
--- NOTE | 2017-11-17 17:32 | Incdntl Nt Psy ---
Incidental Note Notation: Telephone call from resident reporting that the patient has been experiencing diarrhea since yesterday and that his son believes it may be due to the SSRI. No nausea or vomiting reported. Suggests the patient be observed and other possible causes ruled out. If diarrhea persists and it is felt to be secondary to S-Citalopram, would recommend mirtazapine 7.5 mg at bedtime. The patient's symptom profile is likely to respond better to SSRIs so would suggest not discontinuing this unless absolutely necessary.
[2017-11-17 22:40] VITALS: BP 122/82
--- NOTE | 2017-11-18 07:14 | PN- Housestaff ---
Subjective Follow-up For: Syncope Sinus bradycardia. Depression and PTSD. Tele-Events Since Last Visit: Patient remained in sinus rhythm with heart rate between 6983 Subjective: No overnight events. Patient remained afebrile. Seen and examined this morning. Patient denied chest pain, palpitation, nausea, vomiting, chill, fever , abdominal pain dysuria. He is on room air maintaining saturation 98%. Patient was then she has about antidepressant medication. He did not take citalopram yesterday as he reported diarrhea. Patient is worried that if he took that medication and it causing him diarrhea he will syncopized again. As he is living alone at home he does not want any medication that can cause him dizziness or syncope. Patient is walking around independently with use of cane. Review of Systems Constitutional: Denies: chills, fever. EENTM: Reports: no symptoms. Cardiovascular: Denies: chest pain, palpitations. Respiratory: Denies: cough, short of breath, sputum production. Gastrointestinal: Denies: abdominal pain, constipation, diarrhea, nausea, vomiting. Genitourinary: Denies: discharge, frequency. Musculoskeletal: Reports: no symptoms. Neurological/Psychological: Reports: anxiety, depressed. Denies: headache, numbness. Objective Last 24 Hrs of Vital Signs/I&O Vital Signs Date Time Temp Pulse Resp B/P B/P Pulse O2 O2 Flow FiO2 Mean Ox Delivery Rate 11/18 0717 97.3 76 18 134/76 99 Room Air 11/17 2240 98.0 90 18 122/82 98 Room Air 11/17 1522 97.7 66 18 124/70 100 Room Air 11/17 1227 112 11/17 1005 Room Air 0.5L Intake & Output 11/18 1600 11/18 0800 11/18 0000 Intake Total 220 400 Output Total 1450 1100 Balance -1230 -700 Intake, Oral 220 400 Number 1 Bowel Movements Output, Urine 1450 1100 Patient 176 lb Weight Weight Bed scale Measurement Method Physical Exam General Appearance: Alert, Oriented X3, Cooperative Skin Temp/Moisture Exam: Warm/Dry Sepsis Skin Exam (color): Normal for Ethnicity HEENT: Atraumatic, PERRLA, EOMI Neck: Supple Cardiovascular: Normal S1, Normal S2 Lungs: Clear to Auscultation Abdomen: Soft, No Tenderness Neurological: Normal Speech, Strength at 5/5 X4 Ext, Normal Tone Extremities: No Edema Assessment/Plan Assessment: 81 YO M with PMH of BPH status post TURP, CKD stage IIIB, indwelling left nephrostomy tube, hypertension, hyperlipidemia, bladder cancer status post treatment (2008), and "open heart surgery" seen for evaluation of a syncopal episode. Seeing the patient on telemetry floor for following problems. Under observation. Syncopal episode:(resolved) -Patient had syncopal episode yesterday when he was in IR suite for nephrostomy tube change. Patient denied any nausea or vomiting before syncopal episode. -Neurology evaluated the patient for any seizure activity and recommended EEG. -His EEG is normal -Follow-up cardiology recommendations -His echocardiogram showed ejection fraction more than 55% without wall motion abnormality. -His orthostatic vitals are negative -His CT scan had remained negative for any intracranial pathology. Chronic colonization of urine: -Patient has positive UA but his urine culture is negative. -On ceftriaxone day 2. Ceftriaxone has been discontinued as his urine culture remained negative, showed possible chronic colonization. Sinus bradycardia:(improved) -Patient remained asymptomatic -Pacer pads and atropine on bedside -Holding his beta-yuni because of bradycardia. -If he becomes symptomatic with bradycardia he may need permanent pacemaker. -Patient's heart rate has been improved and overnight he remained between 6978. We will check his heart rate while ambulation if patient's heart rate went up in 100s then he may need small dose of beta-yuni before he leaves. -Orthostatics are negative Depression and PTSD: -His recently and patient is depressed and sometimes has PTSD symptoms. Patient also has had some kind of panic attacks sometimes. -Patient does not want citalopram because it is causing him diarrhea. History of chronic kidney disease: -Patient has CKD stage III -On baseline BUN and creatinine. History of hypertension and hyperlipidemia: -Holding his metoprolol due to bradycardia and syncopal episode. -Continue Lipitor History of bladder cancer status post treatment and left nephrostomy tube placement: -Nephrostomy tube will be changed by IR before he goes home. -Patient will follow with his urologist after discharge. DVT prophylaxis: Mechanical and subcutaneous heparin CODE STATUS: DNR/intu Problem List: 1. Depression 2. Bradycardia 3. Syncope Pain Ratin Pain Location: none Pain Goal: Remain pain free Pain Plan: pain pathway Tomorrow's Labs & Rationales: none
[2017-11-18 07:17] VITALS: BP 134/76
--- NOTE | 2017-11-18 10:21 | PN- Cardiology ---
Subjective Subjective: The patient is ambulating and doing somewhat better. His heart rate has been stable with no significant recurrent bradycardia. site monitor review shows no significant new arrhythmias. The patient's heart rate rises into the low 100s with ambulation. He remains somewhat depressed. Apparently he was intolerant of Lexapro due to diarrhea. Objective Vital Signs and I&Os Vital Signs Date Time Temp Pulse Resp B/P B/P Pulse O2 O2 Flow FiO2 Mean Ox Delivery Rate 11/18 0717 97.3 76 18 134/76 99 Room Air 11/17 2240 98.0 90 18 122/82 98 Room Air 11/17 1522 97.7 66 18 124/70 100 Room Air 11/17 1227 112 Intake & Output 11/18 1600 11/18 0800 11/18 0000 11/17 1600 11/17 0800 11/17 0000 Intake Total 220 400 600 400 400 Output Total 1450 6480 731 8677 300 Balance -1230 -700 -100 -1150 100 Intake, Oral 220 400 600 400 400 Number 1 3 Bowel Movements Output, Urine 1450 6129 032 8783 300 Patient 176 lb Weight Weight Bed scale Measurement Method Physical Exam: Gen: NAD HEENT: normal Lungs: clear to auscultation, normal resp. effort Heart: RRR, S1, S2, no murmurs Abdomen: Soft, nontender, no masses Extremities: No clubbing, cyanosis, or edema. Neuro: Alert and oriented x 3, cranial nerves intact Current Medications: Current Medications Sig/Brian Start time Last Medication Dose Route Stop Time Status Admin Acetaminophen 1,000 MG Q6P PRN 11/14 1200 AC 11/14 IV 2027 Atorvastatin Calcium 10 MG 1700 11/15 1700 AC 11/17 PO 1604 Atropine Sulfate 1 MG ONCE PRN 11/14 1345 AC IV Citalopram 5 MG DAILY 11/16 1526 AC 11/17 Hydrobromide PO 0725 Heparin Sodium 5,000 UNIT Q8 11/14 1400 AC 11/18 (Porcine) SC 0601 Magnesium Oxide 0 .STK-MED ONE 11/17 1402 DC PO Results Last 48 Hrs of Labs/Mics: Laboratory Tests 11/18/17 0620: Anion Gap 8, Estimated GFR 23 L, BUN/Creatinine Ratio 10.4, Magnesium 2.0 11/17/17 0622: Anion Gap 11, Estimated GFR 23 L, BUN/Creatinine Ratio 10.0, Magnesium 1.9, Free T4 1.24, Total T3 1.01, TSH &T3 &Free T4 Intrp 8.220 H Assessment/Plan Assessment/Plan Assessment: 1. Hypertension 2. Hyperlipidemia 3. Remote history of ASD repair 4. Syncope, uncertain etiology 5. Sinus bradycardia, heart rate dropping to 30's Plan: -At the present time, the patient seems to be doing well and, I believe is stable for discharge. -Continue as per the medical team. -Continue to hold beta blockers for now. We will recheck the patient again as an outpatient, including a 24-hour Holter monitor at that time, to better check his heart rate range, etc. -Psych input noted. Apparently the patient was intolerant of the medication trial due to diarrhea. This can be reassessed again as outpatient. -The patient will be going home rather than short-term rehab. Apparently his family is looking into assisted living in [place]. -The patient will follow up with me in the office in 2-4 weeks. Continue telemetry? No
[2017-11-18] MEDS ORDERED: CITALOPRAM HBR10 MG PO (10:41)
--- NOTE | 2017-11-18 10:56 | PN- Att Addend ---
Attending Addendum Attending Brief Note Patient states he had some loose bowel movements 3 of them after taking the antidepressant. Patient is not comfortable taking it. His vital signs are stable his pulse is around 90. No new changes in physical. The urine in the back looks clean. Patient will be discharged today. Patient was recommended to get home care and follow with psychiatry and myself. I spoke to the daughter about this. Will hold the beta blockers for now we will monitor his pulse and cardiology will follow up and decide if he has to be restarted on the beta blockers.. Intake & Output 11/18 1600 11/18 0400 11/17 1600 11/17 0400 11/16 1600 11/16 0400 Intake Total 058 466 1370 400 1000 Output Total 1450 1100 2250 300 1650 850 Balance -1230 -700 -1250 100 -650 -850 Intake, Oral 631 524 7550 400 1000 Number 1 3 1 Bowel Movements Output, Urine 1450 1100 2250 300 1650 850 Patient 176 lb 176 lb 178 lb Weight Weight Bed scale Bed scale Measurement Method Current Medications Sig/Brian Start time Last Medication Dose Route Stop Time Status Admin Acetaminophen 1,000 MG Q6P PRN 11/14 1200 AC 11/14 IV 2027 Atorvastatin Calcium 10 MG 1700 11/15 1700 AC 11/17 PO 1604 Atropine Sulfate 1 MG ONCE PRN 11/14 1345 AC IV Citalopram 5 MG DAILY 11/16 1526 AC 11/17 Hydrobromide PO 0725 Heparin Sodium 5,000 UNIT Q8 11/14 1400 AC 11/18 (Porcine) SC 0601 Magnesium Oxide 0 .STK-MED ONE 11/17 1402 DC PO Laboratory Tests 11/18/17 0620: Anion Gap 8, Estimated GFR 23 L, BUN/Creatinine Ratio 10.4, Magnesium 2.0 11/17/17 0622: Anion Gap 11, Estimated GFR 23 L, BUN/Creatinine Ratio 10.0, Magnesium 1.9, Free T4 1.24, Total T3 1.01, TSH &T3 &Free T4 Intrp 8.220 H 11/16/17 0615: Anion Gap 7, Estimated GFR 23 L, BUN/Creatinine Ratio 8.9, Magnesium 1.8 Vital Signs Date Time Temp Pulse Resp B/P B/P Pulse O2 O2 Flow FiO2 Mean Ox Delivery Rate 11/18 07 97.3 76 18 134/76 99 Room Air 11/17 2240 98.0 90 18 122/82 98 Room Air 11/17 1522 97.7 66 18 124/70 100 Room Air 11/17 1227 112
== END 2017-11-18 11:40 | disposition home health service (06) | DRG 310 ==
LOC: ERH 07:42 → 1NO 10:55 → ERHI 10:55 → ENRESERV 11:52 → ENTRNSPT 12:34 → EDTRNSPT 12:55 → EDTRNSPTSTS 12:55 → 1NO 12:59 → CMPTRNSPT 13:13 → 1NO 19:59
PROVIDERS: Emergency Medicine; Internal Medicine Interventional Cardiology
PROC: 0T25X0Z Change Drainage Device in Kidney, External Approach (ICD-10-PCS; principal; 2017-11-15)
DX: R00.1 Bradycardia, unspecified (principal); I47.2 Ventricular tachycardia; E78.5 Hyperlipidemia, unspecified; Z93.6 Other artificial openings of urinary tract status; Z85.51 Personal history of malignant neoplasm of bladder; Z91.048 Other nonmedicinal substance allergy status; R55 Syncope and collapse; N40.0 Benign prostatic hyperplasia without lower urinary tract symptoms; I12.9 Hypertensive chronic kidney disease with stage 1 through stage 4 chronic kidney disease, or unspecified chronic kidney disease; N18.3 Chronic kidney disease, stage 3 (moderate); K59.09 Other constipation; H91.90 Unspecified hearing loss, unspecified ear; F43.10 Post-traumatic stress disorder, unspecified; I49.3 Ventricular premature depolarization; Z66 Do not resuscitate; Z90.49 Acquired absence of other specified parts of digestive tract; Z88.1 Allergy status to other antibiotic agents; Z88.8 Allergy status to other drugs, medicaments and biological substances; Z88.4 Allergy status to anesthetic agent; Z98.890 Other specified postprocedural states
CPT/HCPCS: 1NSP; 36415; 36592; 71045; 75984; 81001; 82436; 87040; 87086; 93005; 93010; 93306; 95816; 97110-GP; 97116-GO; 97116-GP; 97161-GP; 97530-GO; G8978-GP; G8979-GP; J0131; J0461; J0696; J1644; J2001; J7042; Q2036